=== PATIENT | female | born 2000 | race Caucasian/White ===

== ENCOUNTER → 2019-02-24 | Outpatient (REF) | payer OTHER ==
[~2019-02-24] MED LIST: NORG1TAB4 PO
[2019-02-24 20:29] LABS: BASO % 0.1 % (0.0-1.0); HEMATOCRIT 41.5 % (36.0-47.0); HEMOGLOBIN 13.5 g/dl (12.0-15.5); LYMPH % 6.3 % (24.0-44.0); MEAN CORPUSCULAR HEMOGLOBIN 28.7 pg (27.0-33.0); MEAN CORPUSCULAR HGB CONC 32.5 g/dl (32.0-36.5); MEAN CORPUSCULAR VOLUME 88.3 fl (80.0-96.0); MONO # 0.7 10^3/uL (0.0-0.8); MONO % 4.5 % (0.0-5.0); NEUTROPHILS # 13.3 10^3/uL (1.5-8.5); NEUTROPHILS % 88.7 % (36.0-66.0); PLATELET COUNT, AUTOMATED 279 10^3/uL (150-450)
[2019-02-24 20:42] LABS: ALBUMIN 4.6 GM/DL (3.2-5.2); ALT/SGPT 12 U/L (12-78); AMYLASE 57 U/L (25-115); BILIRUBIN,TOTAL 0.6 MG/DL (0.2-1.0); BLOOD UREA NITROGEN 9 MG/DL (7-18); CALCIUM LEVEL 9.6 MG/DL (8.5-10.1); CARBON DIOXIDE LEVEL 28 MEQ/L (21-32); CHLORIDE LEVEL 107 MEQ/L (98-107); CREATININE FOR GFR 1.11 MG/DL (0.55-1.30); GLUCOSE, FASTING 80 MG/DL (70-100); LIPASE 102 U/L (73-393); POTASSIUM SERUM 4.1 MEQ/L (3.5-5.1); SODIUM LEVEL 142 MEQ/L (136-145); TOTAL PROTEIN 7.8 GM/DL (6.4-8.2)
== END ==
LOC: M LAB REF 08:51
PROVIDERS: ATTEND Physician Assistant Medical
DX: R10.9 Unspecified abdominal pain (principal)

== ENCOUNTER 2019-06-13 18:19 | Inpatient (IN) | payer OTHER ==
[~2019-06-13] VITALS: Ht 172.7 cm; Wt 70.9 kg
[2019-06-13 19:18] LABS: HEMATOCRIT 36.2 % (36.0-47.0); HEMOGLOBIN 11.8 g/dl (12.0-15.5); MEAN CORPUSCULAR HEMOGLOBIN 27.7 pg (27.0-33.0); MEAN CORPUSCULAR HGB CONC 32.6 g/dl (32.0-36.5); PLATELET COUNT, AUTOMATED 107 10^3/uL (150-450); RED BLOOD COUNT 4.26 10^6/uL (4.00-5.40); WHITE BLOOD COUNT 3.3 10^3/uL (4.0-10.0)
[2019-06-13 19:41] LABS: ALBUMIN 3.4 GM/DL (3.2-5.2); ALT/SGPT 455 U/L (12-78); BILIRUBIN,DIRECT 1.7 MG/DL (0.0-0.2); BILIRUBIN,TOTAL 2.4 MG/DL (0.2-1.0); BLOOD UREA NITROGEN 7 MG/DL (7-18); CALCIUM LEVEL 8.3 MG/DL (8.5-10.1); CARBON DIOXIDE LEVEL 28 MEQ/L (21-32); CHLORIDE LEVEL 103 MEQ/L (98-107); CREATININE FOR GFR 0.88 MG/DL (0.55-1.30); GLUCOSE, FASTING 91 MG/DL (70-100); LIPASE 82 U/L (73-393); POTASSIUM SERUM 3.3 MEQ/L (3.5-5.1); SODIUM LEVEL 137 MEQ/L (136-145); TOTAL PROTEIN 6.5 GM/DL (6.4-8.2)
[2019-06-13] MEDS ORDERED: NS 1,000 ML IV ONE (19:45)
[2019-06-13 19:49] LABS: HCG, SERUM QUALITATIVE NEGATIVE (NEGATIVE)
[2019-06-13 19:50] LABS: ATYPICAL LYMPH 44 % (0-5); EOSINOPHILS 1 % (0-3); LYMPHOCYTES 14 % (16-44); NEUTROPHILS 27 % (28-66); PLATELET ESTIMATE NORMAL (NORMAL)
[2019-06-13 19:51] LABS: SMUDGE CELLS 1+
[2019-06-13 21:01] LABS: APPEARANCE, URINE HAZY (CLEAR); BACTERIA, URINE AUTO NEGATIVE (NEGATIVE); BILIRUBIN, URINE AUTO NEGATIVE (NEGATIVE); BLOOD, URINE BLOOD 1+ (NEGATIVE); COLOR, URINE YELLOW (YELLOW); GLUCOSE, URINE (UA) AUTO NEGATIVE (NEGATIVE); KETONE, URINE AUTO TRACE mg/dL (NEGATIVE); LEUKOCYTE ESTERASE, URINE AUTO NEGATIVE (NEGATIVE); NITRITE, URINE AUTO NEGATIVE (NEGATIVE); PROTEIN, URINE AUTO NEGATIVE (NEGATIVE); RBC, URINE AUTO 3 /HPF (0-3); SPECIFIC GRAVITY URINE AUTO 1.002 (1.002-1.035); SQUAMOUS EPITHELIAL CELL UR AU 3 /HPF (0-6); WBC, URINE AUTO 4 /HPF (0-3)
--- NOTE | 2019-06-13 21:45 | REPVR ---
PROCEDURE INFORMATION: Exam: US Abdomen Limited, Right Upper Quadrant Exam date and time: 06/13/2019 9:25 PM Age: 18 years old Clinical indication: Abnormal findings; Abnormal lab test and abnormal radiologic finding of the abdomen; Radiologic exam and body structure: Abd xray; Elevated liver enzymes; Additional info: Biliary/gb eval TECHNIQUE: Imaging protocol: Real-time ultrasound of the abdomen with image documentation. Examination was focused on the right upper quadrant. COMPARISON: CR ABDOMEN 1 VIEW (KUB) 06/13/2019 2:09 PM FINDINGS: Liver: The liver is homogeneous in echotexture. No demonstrated mass or intrahepatic biliary ductal dilatation. Gallbladder: The patient was reportedly not fasting, and the gallbladder is contracted. No definite cholelithiasis was identified. There is no significant gallbladder wall thickening or pericholecystic fluid. Sonographic Cali sign was not commented on. Common bile duct: The common bile duct is normal in size for a patient of this age at 5.1 mm. Pancreas: Visualized portions of the pancreas, not fully including the head or tail, are without demonstrated abnormality. Right kidney: The right kidney measures 12.8 x 4.3 x 5.4 cm. There is no hydronephrosis or demonstrated renal stone, cyst or mass. Inferior vena cava: The IVC is present. IMPRESSION: No definite cholelithiasis with the patient reportedly not fasting and the gallbladder contracted. No other abnormality demonstrated. May consider follow-up after the patient has been fasting for 8 hours. Electronically signed by: Elian Conde On 06/13/2019 21:45:29 PM
[2019-06-13] MEDS ORDERED: ISOVUE-370 76% 100ML VIAL (Q9967) As Ordered ONE (22:41)
[2019-06-13] MEDS ORDERED: KETOROLAC 30 MG/ML VIAL (J1885) IV ONE (23:00)
--- NOTE | 2019-06-13 23:20 | REPVR ---
PROCEDURE INFORMATION: Exam: CT Abdomen And Pelvis With Contrast Exam date and time: 06/13/2019 10:49 PM Age: 18 years old Clinical indication: Abdominal pain; Localized; Right upper quadrant (ruq); Additional info: Ruq pain TECHNIQUE: Imaging protocol: Computed tomography of the abdomen and pelvis with intravenous contrast. Radiation optimization: All CT scans at this facility use at least one of these dose optimization techniques: automated exposure control; mA and/or kV adjustment per patient size (includes targeted exams where dose is matched to clinical indication); or iterative reconstruction. Contrast material: ISO; Contrast volume: 100 ml; Contrast route: AC; COMPARISON: Abdomen, limited US 06/13/2019 9:03 PM FINDINGS: Lungs: No suspicious mass or airspace process in the visualized lung bases. Liver: Liver appears normal with no focal abnormality. Gallbladder and bile ducts: Gallbladder is contracted and not well evaluated. Pancreas: Pancreas appears normal. No focal mass or peripancreatic inflammation. Spleen: Spleen appears homogeneous without focal mass. Adrenals: Adrenal glands are normal in appearance. Kidneys and ureters: Kidneys appear normal, with no stone, solid mass or hydronephrosis. Stomach and bowel: No evidence of small bowel obstruction. No evidence of acute diverticulitis. Appendix: Normal caliber appendix is identified, with no adjacent inflammation. Intraperitoneal space: No pneumoperitoneum. Vasculature: No aortic aneurysm. Main portal and splenic veins enhance normally. Lymph nodes: No enlarged lymph nodes. Bladder: Urinary bladder appears normal. Reproductive: Involuting 2 cm left ovarian cyst is seen anteriorly. Moderate volume of transudate-density pelvic free fluid is present Bones/joints: Bony structures show no acute fracture or destructive process. Soft tissues: Unremarkable. IMPRESSION: 1. Contracted gallbladder without evidence of duct stone or dilatation. Patient had an ultrasound earlier today which demonstrated a contracted gallbladder but no apparent stone. No explanation for acute right upper quadrant pain 2. Involuting 2 cm right ovarian cyst with moderate low-density pelvic free fluid Electronically signed by: Triston Scott On 06/13/2019 23:19:44 PM
[2019-06-14] MEDS ORDERED: PIPERACILLIN/TAZOBACTAM SOD 3.375 GM in D5W MINI-BAG PLUS 50 ML IV ONE (00:15)
[2019-06-14] MEDS ORDERED: NORG1TAB4 PO (01:07)
[2019-06-14] MEDS ORDERED: ACETAMINOPHEN TAB 650MG DOSE (2X325MG) PO PRN (01:30)
[2019-06-14] MEDS: KETOROLAC 30 MG/ML VIAL (J1885) IV PRN ×2 (03:51→09:56)
[2019-06-14 04:20] VITALS: BP 129/61
[2019-06-14] MEDS ORDERED: IBUPROFEN 600 MG TAB PO PRN (05:00)
[2019-06-14] MEDS: ONDANSETRON 4MG/2ML VIAL (J2405) IV PRN ×4 (05:27→20:55)
[2019-06-14] MEDS: PIPERACILLIN/TAZOBACTAM SOD 3.375 GM in D5W MINI-BAG PLUS 50 ML IV SCH ×3 (05:27→19:30)
--- NOTE | 2019-06-14 08:24 | HPEPDOC ---
General Date of Admission Jun 14, 2019 at 01:21 Date of Service: Jun 14, 2019 Attending Physician: BRISEIDA SAMS MD Chief Complaint The patient is a 18-year-old female admitted with a reason for visit of Bandemia;Biliary Obstruction;Leukopenia. Source: Patient, Family Exam Limitations: No limitations Timing/Duration: 24 hours Severity: Moderate Associated Symptoms: Fever, Chills, Nausea, Vomiting, Other (abdominal pain) History of Present Illness 18 yo woman with no significant past medical history presenting with N/V/RUQ pain/fever/chills of 24 hour duration. She initially presented to urgent care where an XR was done and noted calcification in her gall bladder. She proceeded to present to the ED where she was hemodynamically stable, mild tachycardia to low 100s to 90s, no recorded fever though she reported fever at home and urgent care. While in the ED work up was notable for leukopenia to 3.3 with a 14% bandemia and 44% atypical, anemia to Hgb 11.8, Hct 36.2, thrombocytopenia to 107, AST 330, ALT 455, Tbili 2.4, Dbili 1.7, alk phos 214, with a CT A/P that showed a contracted gallbladder without evidence of duct stone or dilatation as well as RUQ ultrasound that demonstrated a contracted gallbladder with no apparent stone. She was given toradol 30 IV with improvement in her abdominal pain and was admitted to medicine with plan for GI consult for possible biliary obstruction and for hematologic work up of her pancytopenia. Home Medications Scheduled Norgestimate-Ethinyl Estradiol (Norg-Ee 0.18-0.215-0.25/0.025) 1 Each Tablet, 1 TAB PO QHS, (Reported) ON HOLD UNTIL AFTER MENSTRUATION Allergies Coded Allergies: No Known Allergies (Unverified , 06/13/19) Past Medical History Medical History None Surgical History None Family History Significant Family History: No pertinent family hx Social History * Smoker: Denies Alcohol: Denies Drugs: denies Recent Travel/Sick Contacts: Denies: Recent travel, Recent sick contacts Psychosocial History: No pertinent psych hx A-FIB/CHADSVASC A-FIB History Current/History of A-Fib/PAF?: No Current PO Anticoag Therapy: No Age/Risk Factor Scoring CHADSVASC: CHADSVASC Response (Comments) Value Age Risk Factor Age < 65 years old 0 Gender Risk Factor Female 1 Hx of CHF No 0 Hx of HTN No 0 Hx of Stroke/TIA/or VTE No 0 Hx of Diabetes No 0 Hx of Vascular Disease No 0 Total 1 Treatment Treatment ordered: NONE Reason Anticoagulant not given: Not indicated/[id number] Review of Systems Constitutional: Reports: Chills, Fever; Denies: Weight Loss Eyes: Denies: Pain, Vision change ENT: Denies: Head Aches, Ear Pain, Dysphagia Skin: Denies: Rash, Lesions, Breakdown Pulmonary: Denies: Dyspnea, Cough Cardiovascular: Denies: Chest Pain, Palpitations, Orthopnea, Paroxysmal Noc. Dyspnea, Lt Headedness Gastrointestinal: Reports: Nausea, Vomiting, Abdominal Pain; Denies: Diarrhea, Constipation Genitourinary: Denies: Dysuria, Frequency, Incontinence, Hematuria, Retention Hematologic: Denies: Bruising, Bleeding Excessively Endocrine: Denies: Polydipsia, Polyphagia, Polyuria, Heat Intolerance, Cold Intolerance, Other Endocrine Sx Musculoskeletal: Denies: Neck Pain, Back Pain, Joint Pain, Muscle Pain, Spasms Neurological: Denies: Weakness, Numbness, Change in speech, Confusion Psych: Reports: Mood Normal; Denies: Depression, Memory Issues Physical Examination General Exam: Positive: Alert, No Acute Distress Eye Exam: Positive: PERRLA, Conjunctiva & lids normal, EOMI; Negative: Sclera icteric ENT Exam: Positive: Atraumatic, Mucous membr. moist/pink, Pharynx Normal Neck Exam: Positive: Supple; Negative: JVD, thyromegaly Chest Exam: Positive: Clear to auscultation, Normal air movement Heart Exam: Positive: Rate Normal, Regular Rhythm, Normal S1, Normal S2; Negative: Murmurs, Rubs Telemetry: Positive: No significant arrhythmia Abdomen Exam: Positive: Normal bowel sounds, Soft, Tenderness (+Cali's); Negative: Hepatospenomegaly, Mass Extremity Exam: Positive: Normal pulses; Negative: Clubbing, Cyanosis, Edema Skin Exam: Positive: Nl turgor and temperature; Negative: Breakdown, Lesion Neuro Exam: Positive: Normal Gait, Normal Speech, Cranial Nerves 3-12 NL, Reflexes 2+ Psych Exam: Positive: Mental status NL, Mood NL, Oriented x 3 Vital Signs Vital Signs Date Time Temp Pulse Resp B/P (MAP) Pulse Ox O2 Delivery O2 Flow Rate FiO2 06/14/19 04:20 99.7 96 18 129/61 (83) 98 Room Air Laboratory Data Labs 24H Laboratory Tests 2 06/13/19 18:57: Nucleated Red Blood Cells % (auto) 0.0, Neutrophils 27L, Band Neutrophils 14H, Lymphocytes (Manual) 14L, Eosinophils (Manual) 1, Atypical Lymphocytes 44H, Red Blood Cell Morphology NORMAL, Smudge Cells 1+, Platelet Estimate NORMAL, Anion Gap 6L, Calcium Level 8.3L, Total Bilirubin 2.4H, Direct Bilirubin 1.7H, Aspartate Amino Transf (AST/SGOT) 330H, Alanine Aminotransferase (ALT/SGPT) 455H, Alkaline Phosphatase 214H, Total Protein 6.5, Albumin 3.4, Albumin/Globulin Ratio 1.10, Lipase 82, Human Chorionic Gonadotropin, Qual NEGATIVE 06/13/19 20:28: Urine Color YELLOW, Urine Appearance HAZY, Urine pH 7.0, Urine Specific [place] 1.002, Urine Protein NEGATIVE, Urine Glucose (Auto)(UA) NEGATIVE, Urine Ketones (Auto) TRACEH, Urine Blood 1+H, Urine Nitrite NEGATIVE, Urine Bilirubin NEGATIVE, Urine Urobilinogen 2.0H, Urine Leukocyte Esterase (Auto) NEGATIVE, Urine WBC (Auto) 4H, Urine RBC (Auto) 3, Urine Hyaline Casts (Auto) 0, Urine Bacteria (Auto) NEGATIVE, Urine Squamous Epithelial Cells 3, Urine Sperm (Auto) CBC/BMP Laboratory Tests 06/13/19 18:57 Microbiology Microbiology 06/14/19 Blood Culture, Received Pending 06/13/19 Urine Culture, Received Pending Assessment/Plan 18 yo woman with no significant past medical history who presented with RUQ pain with N/V/fever c/f biliary tree pathology at risk for cholangitis and started on empiric zosyn, however with a contracted gall bladder without evidence of stones with report of calcification on urgent care imaging c/f retained stone, with course c/b panycytopenia c/f hematologic pathology. RUQ pain with N/V/fever/+cali's sign: c/f cholangitis with retained stone, though imaging shows contracted gall bladder (CT and US) without evidence of stones. -GI consult placed, to call Dr. Jones in the morning -continue empiric zosyn -s/p IVF in the ED -toradol PRn for pain -Discuss with Dr. Jones if she should get an MRCP, unlikely ERCP without im aging evidence at this time -was made NPO overnight just in case Pancytopenia: -Leukopenia with bandemia and predominant atypical lymphocytes, as well as mild anemia and thrombocytopenia and elevated bilis -Peripheral smear -LDH -haptoglobin -RBC retic count -vitamin B12 -MMA -Fe -TIBC -ferritin DVT ppx: lovenox Dispo: inpatient for RUQ pain and pancytopenia work up Plan / VTE VTE Prophylaxis Ordered?: Yes BRISEIDA SAMS MD Jun 14, 2019 08:24
[2019-06-14] MEDS ORDERED: ENOXAPARIN 40 MG/0.4 ML SYRINGE (J1650) SC SCH (09:00)
[2019-06-14 09:48] LABS: HEMATOCRIT 33.3 % (36.0-47.0); HEMOGLOBIN 10.9 g/dl (12.0-15.5); MEAN CORPUSCULAR HGB CONC 32.7 g/dl (32.0-36.5); MEAN CORPUSCULAR VOLUME 85.6 fl (80.0-96.0); RED BLOOD COUNT 3.89 10^6/uL (4.00-5.40); WHITE BLOOD COUNT 2.9 10^3/uL (4.0-10.0)
[2019-06-14 09:54] LABS: PLATELET COUNT, AUTOMATED 99 10^3/uL (150-450)
[2019-06-14 10:14] LABS: ALBUMIN 2.8 GM/DL (3.2-5.2); ALT/SGPT 356 U/L (12-78); BILIRUBIN,TOTAL 2.7 MG/DL (0.2-1.0); BLOOD UREA NITROGEN 5 MG/DL (7-18); CALCIUM LEVEL 7.9 MG/DL (8.5-10.1); CARBON DIOXIDE LEVEL 26 MEQ/L (21-32); CHLORIDE LEVEL 107 MEQ/L (98-107); CREATININE FOR GFR 0.83 MG/DL (0.55-1.30); FERRITIN 280 NG/ML (8-252); GLUCOSE, FASTING 88 MG/DL (70-100); IRON (FE) 21 UG/DL (50-170); LDH LACTATE DEHYDROGENASE 347 U/L (84-246); PERCENT SATURATION 8.5 % (13.2-45.0); POTASSIUM SERUM 3.3 MEQ/L (3.5-5.1); SODIUM LEVEL 140 MEQ/L (136-145); TOTAL IRON BINDING CAPACITY 248 UG/DL (250-450); TOTAL PROTEIN 5.7 GM/DL (6.4-8.2)
[2019-06-14 10:30] LABS: MONO REFLEX EBV VCA IgM POSITIVE (NEGATIVE)
[2019-06-14 10:31] LABS: VITAMIN B12 LEVEL 262 PG/ML (247-911)
[2019-06-14 10:33] LABS: ATYPICAL LYMPH 27 % (0-5); LYMPHOCYTES 35 % (16-44); MONOCYTES 2 % (0-5); NEUTROPHILS 34 % (28-66); PLATELET ESTIMATE DECREASED (NORMAL)
--- NOTE | 2019-06-14 12:12 | IPNPDOC ---
Subjective Date Seen The patient was seen on 06/14/19. Subjective Chief Complaint/HPI Complains of right upper quadrant pain and epigastric pain with some substernal pain. No fever noted but patient on Toradol. Some nausea no vomiting. Having regular bowel movements. Also complains of headache. Her abdominal complaints started about 5 days ago. As per mom she has been getting more listless and tired. I noted her texting on the cell phone. Objective Physical Examination General Exam: Positive: Alert, Cooperative, No Acute Distress Eye Exam: Positive: PERRLA, Conjunctiva & lids normal, EOMI; Negative: Sclera icteric ENT Exam: Positive: Atraumatic, Mucous membr. moist/pink, Pharynx Normal Neck Exam: Positive: Supple; Negative: JVD, thyromegaly Chest Exam: Positive: Clear to auscultation, Normal air movement Heart Exam: Positive: Rate Normal, Regular Rhythm, Normal S1, Normal S2; Negative: Murmurs, Rubs Telemetry: Positive: No significant arrhythmia Abdomen Exam: Positive: Normal bowel sounds, Soft, Tenderness (right upper quadrant); Negative: Hepatospenomegaly, Mass Extremity Exam: Positive: Normal pulses; Negative: Clubbing, Cyanosis, Edema Skin Exam: Positive: Nl turgor and temperature; Negative: Breakdown, Lesion Neuro Exam: Positive: Normal Gait, Normal Speech, Cranial Nerves 3-12 NL, Reflexes 2+ Psych Exam: Positive: Mental status NL, Mood NL, Oriented x 3 Assessment /Plan Assessment 18 yo woman with no significant past medical history who presented with RUQ pain with N/V/fever c/f biliary tree pathology at risk for cholangitis and started on empiric zosyn, however with a contracted gall bladder without evidence of stones with report of calcification on urgent care imaging c/f retained stone, with course c/b panycytopenia c/f hematologic pathology. Transaminitis with direct hyperbirirubinemia no definite obs or GB stone seen seen in CT abd pelvis. May need MRCP. viral studies has been sent. Monoscreen positive. Cholangitis is a possibilitiy will continue zosyn for now. Pancytopenia with 44% atypical lymphocytes Acute viral illness VS hematological malignancy Consulted Dr Hays ordered flow cytometry, JAIDEN, fibrinogen , d dimer will order CMV pcr, EBV qualitative pcr, Herpes 1 and 2 pcr. peripheral smear ordered. order work up are in progress. Plan/VTE VTE Prophylaxis Ordered?: Yes VS, I&O, 24H, Fishbone Vital Signs/I&O Vital Signs Date Time Temp Pulse Resp B/P (MAP) Pulse Ox O2 Delivery O2 Flow Rate FiO2 06/14/19 04:20 99.7 96 18 129/61 (83) 98 Room Air I&O- Last 24 Hours up to 6 AM 06/14/19 06:00 Intake Total 1000 ml Output Total 0 ml Balance 1000 ml Laboratory Data 24H LABS Laboratory Tests 2 06/13/19 18:57: Nucleated Red Blood Cells % (auto) 0.0, Neutrophils 27L, Band Neutrophils 14H, Lymphocytes (Manual) 14L, Eosinophils (Manual) 1, Atypical Lymphocytes 44H, Red Blood Cell Morphology NORMAL, Smudge Cells 1+, Platelet Estimate NORMAL, Anion Gap 6L, Calcium Level 8.3L, Total Bilirubin 2.4H, Direct Bilirubin 1.7H, Aspartate Amino Transf (AST/SGOT) 330H, Alanine Aminotransferase (ALT/SGPT) 455H, Alkaline Phosphatase 214H, Total Protein 6.5, Albumin 3.4, Albumin/Globulin Ratio 1.10, Lipase 82, Human Chorionic Gonadotropin, Qual NEGAT ARABELLA 06/13/19 20:28: Urine Color YELLOW, Urine Appearance HAZY, Urine pH 7.0, Urine Specific [place] 1.002, Urine Protein NEGATIVE, Urine Glucose (Auto)(UA) NEGATIVE, Urine Ketones (Auto) TRACEH, Urine Blood 1+H, Urine Nitrite NEGATIVE, Urine Bilirubin NEGATIVE, Urine Urobilinogen 2.0H, Urine Leukocyte Esterase (Auto) NEGATIVE, Urine WBC (Auto) 4H, Urine RBC (Auto) 3, Urine Hyaline Casts (Auto) 0, Urine Bacteria (Auto) NEGATIVE, Urine Squamous Epithelial Cells 3, Urine Sperm (Auto) 06/14/19 09:35: Nucleated Red Blood Cells % (auto) 0.0, Neutrophils 34, Band Neutrophils 2, Lymphocytes (Manual) 35, Atypical Lymphocytes 27H, Platelet Estimate DECREASED, Anion Gap 7L, Calcium Level 7.9L, Total Bilirubin 2.7H, Aspartate Amino Transf (AST/SGOT) 223H, Alanine Aminotransferase (ALT/SGPT) 356H, Alkaline Phosphatase 234H, Total Protein 5.7L, Albumin 2.8L, Albumin/Globulin Ratio 0.97L, Neutrophils # (Auto) , Reticulocyte # (auto) 53.7, Monocytes (Manual) 2, Differential Slide Review Report, Immature Platelet Fraction 3.9, Peripheral Blood Smear Path Consult PERIPHERAL SMEAR, Percent Reticulocyte Count 1.4, Reticulocyte Hemoglobin Equivalent 29.7, Iron Level 21L, Total Iron Binding Capacity 248L, Transferrin % Saturation 8.5L, Ferritin 280H, Lactate Dehydrogenase 347H, Vitamin B12 Level 262, Monoscreen POSITIVEA CBC/BMP Laboratory Tests 06/13/19 18:57 06/14/19 09:35 Microbiology Microbiology 06/14/19 Blood Culture, Received Pending 06/13/19 Urine Culture, Received Pending CHAPARRITA LAM MD Jun 14, 2019 12:12
[2019-06-14 12:23] LABS: INR 1.34; PROTHROMBIN TIME 16.3 SECONDS (11.8-14.0)
[2019-06-14 12:24] LABS: PARTIAL THROMBOPLASTIN TIME 54.4 SECONDS (25.0-38.4)
[2019-06-14 12:26] LABS: D-DIMER QUANT 2964.95 ng/ml (<500)
[2019-06-14] MEDS: PANTOPRAZOLE 40MG INJ (PROTONIX) (C9113) IV SCH (12:26)
[2019-06-14] MEDS: oxyCODONE 5MG TAB PO PRN ×2 (12:27→19:39)
[2019-06-14 14:00] VITALS: BP 95/48
[2019-06-14] MEDS: KETOROLAC 30 MG/ML VIAL (J1885) IV SCH ×2 (16:27→21:07)
[2019-06-14] MEDS ORDERED: ISOVUE-370 76% 100ML VIAL (Q9967) As Ordered ONE (17:41)
[2019-06-14] MEDS ORDERED: PHYTONADIONE 5 MG TAB PO ONE (18:00)
--- NOTE | 2019-06-14 19:07 | REPVR ---
PROCEDURE INFORMATION: Exam: CT Neck With Contrast Exam date and time: 06/14/2019 5:59 PM Age: 18 years old Clinical indication: Neck pain; Additional info: Right upper cervical lymph node, R/O lymphadenopathy TECHNIQUE: Imaging protocol: Computed tomography images of the neck with intravenous contrast. Radiation optimization: All CT scans at this facility use at least one of these dose optimization techniques: automated exposure control; mA and/or kV adjustment per patient size (includes targeted exams where dose is matched to clinical indication); or iterative reconstruction. Contrast material: ISOVUE 370; Contrast volume: 75 ml; Contrast route: IV; COMPARISON: No relevant prior studies available. FINDINGS: Nasopharynx: Unremarkable. Oropharynx: Unremarkable. No significant tonsillar enlargement. Hypopharynx: Unremarkable Larynx: Unremarkable. Normal epiglottis. Retropharyngeal space: Unremarkable. Submandibular/Parotid glands: Normal. Glands are normal in size. Thyroid: Normal. No enlarged or calcified nodules. Lymph nodes: Cervical chain lymphadenopathy on the right measures up to 13 mm in the jugulodigastric region and 8 mm at the base of the neck, with lymph nodes extending from level 2 to level 4. Multiple lymph nodes demonstrated on the left measuring up to 9 mm in the jugular digastric region extending from level 2 to level 3. Trachea: Visualized trachea is unremarkable. Lungs: Unremarkable as visualized. Bones/joints: Unremarkable. No acute fracture. Soft tissues: Unremarkable. No significant soft tissue swelling. IMPRESSION: Bilateral cervical lymphadenopathy, right greater than left. Electronically signed by: Edgardo Arnold On 06/14/2019 19:07:29 PM
[2019-06-14 20:48] VITALS: BP 106/66
[2019-06-14] MEDS: NS 1,000 ML IV SCH (20:55)
--- NOTE | 2019-06-14 22:33 | CR.PDOC ---
General Date of Consultation: Jun 14, 2019 Referring Provider: CHAPARRITA KC MD Attending Physician: RUFINO KANG MD Consultation Primary physician/ hospitalist: Dr. Kc Reason for consult: Abdominal pain, abnormal liver panel. HPI: 18 year old female patient with no prior medical comorbidities, was admitted to [facility] for headaches, upper abdominal pain, nausea and vomiting. Patient is noted to have abnormal liver tests and GI was consulted for the same. Patient reports her symptoms started cutely around 5 days ago with dark orange coloured urine, subsequently with headaches, upper abdominal pain, nausea, vominting, which continued to get worse and unable to tolerate any oral diet. The abdominal pain is in upper abdomen, extending from righ soraya quadrant to left upper quadrant area, waxing and waning, sometimes sharp pain, worsening with pressure/palpation. Patient denies any measured fever, no nuchal rigidity, no visual disturbances but has some photophobia. Pateint deana reports swelling of the neck lymph nodes. Patient denies taking any OTC medications, herbal supplements, heavy alcohol use or any IVDA. Pertinent negative GI symptoms: Patient denies fever, sick contacts, recent travel, diarrhea, loss of appetite, early satiety or unintentional weight loss. No history of hematemesis, melena or hematochezia. Patient reports regular bowel movements. Review of Systems: GI: as stated above CVS: No chest pain, No palpitations, No leg swelling. RS: No Shortness of breath, No Wheezing, no cough ELECTROPHYSIOLOGIST: No dizziness, No motor weakness, No sensory problems Hematology: No bruising, No gum bleeding, Musculoskeletal: No joint pain, ambulating well. Skin: No rash : No hematuria, No burning sensation of the urine ENT: No ear discharge/ pain, No dysphagia. Eyes: no blurry vision. Home medications: reviewed. Antithrombotic agents - none Medical h/o: As above. Surgical h/o: None on abdomen. Social h/o: Alcohol - denies , smoking - denies , IVDA/ drugs , denies. . Family h/o of GI cancers - Father has Lymphoma. Prior Endoscopies: None Prior GI evaluations: None in past. Exam: Vitals: reviewed General: Alert and oriented x 3, mild distress from pain. HEENT: NO pallor, no clinical scleral icterus. Normal oropharynx, palpable bilateral tender cervical lymphadenopathy. pupils are equal and reactive. Chest: symmetric with bilateral clear air entry, CVS: S1, S2 heard, normal, no murmurs . Abdomen: non-distended, no surgical scars, soft, mild to moderate tenderness in right upper, epigastric and left upper quadrant., no palpable masses, normal bowel sounds heard. Rectal exam: Patient refused / Deferred at this time. Extremities: no pedal edema, pulses palpable. ELECTROPHYSIOLOGIST: no focal motor or sensory deficits. Moves all extremities Skin: no rash. Labs: reviewed. Imaging: reviewed. Impression: -- Acute onset abdominal pain ( upper abdomen) with flu like illness, nuasea, vomiting, headaches, with bilateral cervical lymphadenopathy ( tender), labs showing pancytopenia, with abnormal liver panel, normal CBD on CT abdomen, likel y viral infections (Infectious mononucleosis / herpes infection / parvo viral infection) vs atypical viral illness vs less likely lymphoma. -- Pancytopenia with headaches and minimal photophobia-- likely from flu like illness. rule out other causes. Recommendations: - Patient educated about the test results, possible differential diagnoses and All questions answered. - Closely monitor mental status and septic work up. If any change in mental status or focl neurologicl changes, consider MRI/CT head. - Obtain EBV serology, HSV serology, hemolyic work up including Haptoglobin and LDH, direct and indirect edilson antibody, Peripheral smear for pathology review. - Also obtain viral hepatitis panel. Avoid hepatotoxic medications. - Supportive care with oral nutrition as tolerated. - Consider PPI for now due to nausea and vomiting. - Based on above consider flow cytometry - Based on clinical course will consider EGD if needed on Wednesday. - The procedure, indications, risks (bleeding, perforation, infection, hypotension, respiratory depression, allergy, need for endotracheal intubation, surgery, colostomy, cardiac arrest, even ), benefits, limitations (e.g., missing a lesion), and all other alternatives (including no intervention) were explained to the patient and her mother. - GI will follow.. Plan of care discussed with patient and primary team. Patient verbalized understanding and agreed with the plan. Vital Signs/I&O Vital Signs Date Time Temp Pulse Resp B/P (MAP) Pulse Ox O2 Delivery O2 Flow Rate FiO2 06/14/19 20:09 20 06/14/19 19:39 Room Air 06/14/19 14:00 97.7 88 95/48 (64) 98 I&O- Last 24 Hours up to 6 AM 06/14/19 06:00 Intake Total 1000 ml Output Total 0 ml Balance 1000 ml Laboratory Data Labs 24H Laboratory Tests 2 06/14/19 09:35: Neutrophils # (Auto) , Reticulocyte # (auto) 53.7, Nucleated Red Blood Cells % (auto) 0.0, Neutrophils 34, Band Neutrophils 2, Lymphocytes (Manual) 35, Monocytes (Manual) 2, Atypical Lymphocytes 27H, Platelet Estimate DECREASED, Differential Slide Review Report, Immature Platelet Fraction 3.9, Peripheral Blood Smear Path Consult PERIPHERAL SMEAR, Percent Reticulocyte Count 1.4, Reticulocyte Hemoglobin Equivalent 29.7, Anion Gap 7L, Calcium Level 7.9L, Iron Level 21L, Total Iron Binding Capacity 248L, Transferrin % Saturation 8.5L, Ferritin 280H, Total Bilirubin 2.7H, Aspartate Amino Transf (AST/SGOT) 223H, Alanine Aminotransferase (ALT/SGPT) 356H, Alkaline Phosphatase 234H, Lactate Dehydrogenase 347H, Total Protein 5.7L, Albumin 2.8L, Albumin/Globulin Ratio 0.97L, Vitamin B12 Level 262, Monoscreen POSITIVEA 06/14/19 10:52: Prothrombin Time 16.3H, Prothromb Time International Ratio 1.34, Activated Part ial Thromboplast Time 54.4H, Fibrinogen 295, D-Dimer, Quantitative 2964.95H CBC/BMP Laboratory Tests 06/14/19 09:35 Microbiology Microbiology 06/14/19 Blood Culture, Received Pending 06/13/19 Urine Culture - Final, Complete Allergies Coded Allergies: No Known Allergies (Unverified , 06/13/19) Home Medications Scheduled Norgestimate-Ethinyl Estradiol (Norg-Ee 0.18-0.215-0.25/0.025) 1 Each Tablet, 1 TAB PO QHS, (Reported) ON HOLD UNTIL AFTER MENSTRUATION RUFINO KANG MD Jun 14, 2019 22:33
[2019-06-15] MEDS: oxyCODONE 5MG TAB PO PRN ×5 (02:02→22:43)
[2019-06-15] MEDS: ONDANSETRON 4MG/2ML VIAL (J2405) IV PRN ×5 (02:02→22:43)
[2019-06-15] MEDS: KETOROLAC 30 MG/ML VIAL (J1885) IV SCH ×2 (03:58→09:25)
[2019-06-15 06:10] VITALS: BP 106/66
[2019-06-15] MEDS: NS 1,000 ML IV SCH ×2 (06:17→16:12)
[2019-06-15 07:31] LABS: HEMATOCRIT 32.4 % (36.0-47.0); HEMOGLOBIN 10.4 g/dl (12.0-15.5); MEAN CORPUSCULAR HEMOGLOBIN 27.9 pg (27.0-33.0); MEAN CORPUSCULAR HGB CONC 32.1 g/dl (32.0-36.5); MEAN CORPUSCULAR VOLUME 86.9 fl (80.0-96.0); RED BLOOD COUNT 3.73 10^6/uL (4.00-5.40); WHITE BLOOD COUNT 4.9 10^3/uL (4.0-10.0)
[2019-06-15 07:34] LABS: PLATELET COUNT, AUTOMATED 98 10^3/uL (150-450)
[2019-06-15 07:43] LABS: ALBUMIN 2.5 GM/DL (3.2-5.2); ALT/SGPT 317 U/L (12-78); BILIRUBIN,TOTAL 3.3 MG/DL (0.2-1.0); BLOOD UREA NITROGEN 6 MG/DL (7-18); CALCIUM LEVEL 7.9 MG/DL (8.5-10.1); CARBON DIOXIDE LEVEL 26 MEQ/L (21-32); CHLORIDE LEVEL 106 MEQ/L (98-107); CREATININE FOR GFR 0.78 MG/DL (0.55-1.30); GLUCOSE, FASTING 80 MG/DL (70-100); POTASSIUM SERUM 3.5 MEQ/L (3.5-5.1); SODIUM LEVEL 140 MEQ/L (136-145); TOTAL PROTEIN 5.6 GM/DL (6.4-8.2)
[2019-06-15 08:29] LABS: ATYPICAL LYMPH 12 % (0-5); LYMPHOCYTES 53 % (16-44); METAMYELOCYTES 2 % (0-0); MONOCYTES 5 % (0-5); NEUTROPHILS 24 % (28-66); PLATELET ESTIMATE DECREASED (NORMAL)
[2019-06-15 08:30] LABS: ANISOCYTOSIS 1+; MICROCYTOSIS 1+
[2019-06-15] MEDS: PANTOPRAZOLE 40MG INJ (PROTONIX) (C9113) IV SCH (09:25)
--- NOTE | 2019-06-15 11:50 | IPNPDOC ---
Subjective Date Seen The patient was seen on 06/15/19. Subjective Chief Complaint/HPI Still has some nausea and vomited once this am. Still has a headache but not as bed as yesterday, No photophobia. Objective Physical Examination General Exam: Positive: Alert, Cooperative, No Acute Distress Eye Exam: Positive: PERRLA, Conjunctiva & lids normal, EOMI; Negative: Sclera icteric ENT Exam: Positive: Atraumatic, Mucous membr. moist/pink, Pharynx Normal Neck Exam: Positive: Supple, Other (no neck rigidity); Negative: JVD, thyromegaly Chest Exam: Positive: Clear to auscultation, Normal air movement Heart Exam: Positive: Rate Normal, Regular Rhythm, Normal S1, Normal S2; Negative: Murmurs, Rubs Telemetry: Positive: No significant arrhythmia Abdomen Exam: Positive: Normal bowel sounds, Soft, Tenderness (right upper quadrant); Negative: Hepatospenomegaly, Mass Extremity Exam: Positive: Normal pulses; Negative: Clubbing, Cyanosis, Edema Skin Exam: Positive: Nl turgor and temperature; Negative: Breakdown, Lesion Neuro Exam: Positive: Normal Gait, Normal Speech, Cranial Nerves 3-12 NL, Reflexes 2+ Psych Exam: Positive: Mental status NL, Mood NL, Oriented x 3 Assessment /Plan Assessment 18 yo woman with no significant past medical history who presented with RUQ pain with N/V/fever c/f biliary tree pathology at risk for cholangitis and started on empiric zosyn, however with a contracted gall bladder without evidence of stones with report of calcification on urgent care imaging c/f retained stone, with course c/b panycytopenia c/f hematologic pathology. Transaminitis with direct hyperbirirubinemia no definite obs or GB stone seen seen in CT abd pelvis. viral studies has been sent. Monoscreen positive. CT neck with multiple lymphadenopathy Most probably infectious mononucleosis Pancytopenia with atypical lymphocytes improving. Acute viral illness VS hematological malignancy Consulted Dr Hays ;and Dr Romero JAIDEN negative. ordered CMV pcr, EBV qualitative pcr, Herpes 1 and 2 pcr. Flow cytometry cancelled as pathologist said this seems like mono and after she is better from mono if thrombocytopenia persists then only she should get a flow cytometry. Plan/VTE VTE Prophylaxis Ordered?: Yes VS, I&O, 24H, Fishbone Vital Signs/I&O Vital Signs Date Time Temp Pulse Resp B/P (MAP) Pulse Ox O2 Delivery O2 Flow Rate FiO2 06/15/19 07:36 18 Room Air 06/15/19 06:10 98.9 84 106/66 (79) 99 I&O- Last 24 Hours up to 6 AM 06/15/19 06:00 Intake Total 710 ml Output Total 0 ml Balance 710 ml Laboratory Data 24H LABS Laboratory Tests 2 06/15/19 06:57: Neutrophils # (Auto) , Nucleated Red Blood Cells % (auto) 0.0, Neutrophils 24L, Band Neutrophils 4, Lymphocytes (Manual) 53H, Monocytes (Manual) 5, Metamyelocytes 2H, Atypical Lymphocytes 12H, Anisocytosis 1+, Microcytosis 1+, Platelet Estimate DECREASED 06/15/19 06:58: Anion Gap 8, Calcium Level 7.9L, Total Bilirubin 3.3H, Aspartate Amino Transf (AST/SGOT) 195H, Alanine Aminotransferase (ALT/SGPT) 317H, Alkaline Phosphatase 239H, Total Protein 5.6L, Albumin 2.5L, Albumin/Globulin Ratio 0.81L CBC/BMP Laboratory Tests 06/15/19 06:57 06/15/19 06:58 Microbiology Microbiology 06/14/19 Blood Culture - Preliminary, Resulted No growth after 24 hours . All specim... 06/13/19 Urine Culture - Final, Complete CHAPARRITA LAM MD Jun 15, 2019 11:50
[2019-06-15 12:45] VITALS: BP 112/71
--- NOTE | 2019-06-15 15:09 | CR.PDOC ---
General Date of Consultation: Jun 15, 2019 Attending Physician: Jon Romero MD Consultation REASON FOR CONSULTATION/CHIEF COMPLAINT: Leukopenia, bandemia, positive Monospot HISTORY OF PRESENT ILLNESS: Patient is a 18-year-old female without any past medical history who originally presented to emergency department on 06/14/2019 with a 3 day history of headache with photophobia, nausea, vomiting, right upper quadrant pain in the setting of fever and chills. The day of presentation, patient reports to urgent care for evaluation. An upright plain film image was ordered which demonstrated some evidence of choledocholithiasis. Recommended patient presented to the emergency department further evaluation and management. Emergency department workup was significant for a leukopenia of 3.3 with a 14% bandemia and 44% atypical. Hemoglobin of 11.8. Thermal cytopenia at 107. AST of 3:30 in the mail to you for 55. Patient's T bili was also elevated at 2.4, D bili at 1.7 and alkaline phosphatase of 214. CT abdomen and pelvis showed a contracted gallbladder without evidence of stone dilation. Ultrasound confirmed contracted gallbladder with no apparent stone. PAST MEDICAL HISTORY: No significant past medical history PAST SURGICAL HISTORY: No surgical history FAMILY HISTORY: Patient reports that her father was diagnosed with mantle cell lymphoma in his mid 50s. SOCIAL HISTORY: Marital status and/or living arrangements: Patient lives at home with father. Tobacco use: Nonsmoker ETOH: Denies alcohol use Illicit drug use: Denies illicit drug use IV drug use: Denies IV drug use Other relevant social factors: Patient lives in [place] with her father, 3 dogs, No recent travel or known exposures. REVIEW OF SYSTEMS: CONSTITUTIONAL: Patient reports a total of 5 days of intermittent fevers and chills and decreased appetite secondary to nausea. HEENT: Patient is reporting a 5 day history of headache with slight photophobia. She also has noted lymph nodes on her right lateral neck. No vision changes, no difficulty swallowing, no sore throat. CARDIOVASCULAR: Patient reports epigastric chest pain upon deep inspiration. Denies any palpitations. RESPIRATORY: Denies any shortness of breath, recent cough or sputum production GENITOURINARY: No dysuria, urinary frequency, urgency, hesitancy, incontinence MUSCULOSKELETAL: Denies any muscle aches, joint pains GASTROINTESTINAL: Recent history of nausea alleviated with Zofran, last bout of emesis last evening. SKIN: Patient noted an obscure bruise on the lateral aspect of her right thigh. No other noted skin rashes NEUROLOGICAL: As per admission, patient does report persistent photophobia with dull bitemporal headache. PSYCHIATRIC: No psychiatric history. ENDOCRINE: No history of polydipsia, polyphagia,. HEMATOLOGIC/LYMPHATIC: No history of easy bruising PHYSICAL EXAMINATION: VITAL SIGNS: Please see below. GENERAL APPEARANCE: Patient is interviewed and examined in her hospital room. Patient was accompanied by patient's mother and friend. She did not appear to be in any acute distress. She was alert and oriented, able to answer questions regarding her medical history appropriately able to actively participate in her care. Do not appear to be in any visible discomfort. HEENT: Normocephalic, atraumatic, EOMI, no sinus tenderness. His membranes are moist. Nontender, posterior cervical nodes palpated on the right. No tonsil enlargement tonsillar exudate. RESPIRATORY: Clear to auscultation bilaterally with full inspiration. No wheezing rales or rhonchi CARDIOVASCULAR: Regular rate and rhythm, normal S1 and S2. No murmurs appreciated ABDOMEN: Patient tender in the right upper quadrant and left upper quadrant. Abdomen is otherwise soft, no guarding or rebound tenderness. BACK: Negative CVA tenderness EXTREMITIES: No edema or calf tenderness bilaterally. Resolving facial bruises noted on the lateral aspect of patient's right thigh. NEUROLOGICAL: No focal neurologic deficits appreciated. Mentation. Alert and oriented 3. PSYCHIATRIC: Mood and affect appropriate given the patient's current medical condition. LABORATORY DATA: Please see below. ASSESSMENT/PLAN: #Mild Leukopenia with bandemia, 44% atypical lymphocytes -Suspect viral infection, mononucleosis Patient remains afebrile -Peripheral smear demonstrating many reactive/atypical lymphocytes, consistent with viral illness. -[place] screen positive. We will also screen patient for HIV. -Lyme, CMV, parvo and HSV serologies remain pending. #Heme/Onc consulted to assist with ruling out hematologic malignancy -Patient does carry a family history of mantle cell lymphoma. Posterior cervical chain lymphadenopathy noted on examination. -Neck CT performed on 06/14/2019 that showed evidence of bilateral cervical lymphadenopathy, right greater than left. -Cervical lymphadenopathy may infect be reactive and related to positive Monospot. -Dr. Hays is currently following the case. #Abdominal pain in the setting of elevated liver enzymes and alkaline phosphatase -GI has been consulted. No radiographic evidence of cholelithiasis or choledocholithiasis display cholestatic pattern. -AST/AOT of 330/455, alkaline phosphatase of 214. Negative lipase. -Hepatitis A, B, C, E serologies pending -Abnormal liver enzymes likely related to patient's mononucleosis. 80-100% the patient's infective mononucleosis with abnormal LFTs. Alkaline phosphatase, AST/ALT will be Approximate 5-14 days after onset of symptoms which appropriately correlates clinically. Vital Signs/I&O Vital Signs Date Time Temp Pulse Resp B/P (MAP) Pulse Ox O2 Delivery O2 Flow Rate FiO2 06/15/19 12:45 98.2 88 18 112/71 (85) 98 Room Air I&O- Last 24 Hours up to 6 AM 06/15/19 06:00 Intake Total 710 ml Output Total 0 ml Balance 710 ml Laboratory Data Labs 24H Laboratory Tests 2 06/15/19 06:57: Neutrophils # (Auto) , Nucleated Red Blood Cells % (auto) 0.0, Neutrophils 24L, Band Neutrophils 4, Lymphocytes (Manual) 53H, Monocytes (Manual) 5, Metamyelocytes 2H, Atypical Lymphocytes 12H, Anisocytosis 1+, Microcytosis 1+, Platelet Estimate DECREASED 06/15/19 06:58: Anion Gap 8, Calcium Level 7.9L, Total Bilirubin 3.3H, Aspartate Amino Transf (AST/SGOT) 195H, Alanine Aminotransferase (ALT/SGPT) 317H, Alkaline Phosphatase 239H, Total Protein 5.6L, Albumin 2.5L, Albumin/Globulin Ratio 0.81L CBC/BMP Laboratory Tests 06/15/19 06:57 06/15/19 06:58 Microbiology Microbiology 06/14/19 Blood Culture - Preliminary, Resulted No growth after 24 hours . All specim... 06/13/19 Urine Culture - Final, Complete Allergies Coded Allergies: No Known Allergies (Unverified , 06/13/19) Home Medications Scheduled Norgestimate-Ethinyl Estradiol (Norg-Ee 0.18-0.215-0.25/0.025) 1 Each Tablet, 1 TAB PO QHS, (Reported) ON HOLD UNTIL AFTER MENSTRUATION GME ATTESTATION GME ATTESTATION My faculty preceptor for this patient encounter was physically present during the encounter and was fully available. All aspects of the patient interview, examination, medical decision making process, and medical care plan development were reviewed and approved by the faculty preceptor. The faculty preceptor is aware and concurs with the plan as stated in the body of this note and will attest to such by his/her cosignature. PADMA BERNARD DO Jun 15, 2019 13:48
[2019-06-15] MEDS: KETOROLAC 30 MG/ML VIAL (J1885) IV PRN (19:39)
[2019-06-15] MEDS: PROMETHAZINE INJ 25 MG/ML VIAL (J2550) IV PRN (19:55)
[2019-06-15 21:18] VITALS: BP 109/69
--- NOTE | 2019-06-15 22:35 | CR ---
MEDICAL ONCOLOGY / HEMATOLOGY INPATIENT CONSULT DATE OF SERVICE: 06/14/2019 REQUESTING PHYSICIAN: Chelsea Kc MD DIAGNOSIS Pancytopenia in a patient with significant transaminitis, elevated alkaline phosphatase and bilirubin, right upper quadrant pain, fatigue, and malaise. HISTORY OF PRESENT ILLNESS Tamie is at baseline is a well 18-year-old. On the , yesterday she presented to the emergency room with several days of progressive headaches, fatigue, evolving right upper quadrant discomfort, loss of appetite. CBC showed mostly normal counts with mildly low platelets 122, normal differential except for atypical lymphocytes, but AST, ALT and alkaline phosphatase were severely abnormal with AST 400, ALT 502, alkaline phosphatase 219. Bilirubin also was up to 2.2. Renal function normal. Abdomen ultrasound was essentially a negative study, abdomen and pelvis CT with IV contrast showed a contracted gallbladder without stones and an involuting 2 cm right ovarian cyst and some moderate low density pelvic free fluid, but no significant adenopathy liver or gallbladder area masses, no splenomegaly. Over 24 hours she developed new pancytopenia with WBC this morning 2.9, hemoglobin 10.9, hematocrit 99 with an essentially unchanged differential, mildly elevated retic count. [place] screen was drawn and ultimately tested positive positive. At the bedside Tamie prefers the light to be off. She is very sterile. Complains of headache. Her mother is at bedside. She is quiet; does not do much. Her chief complaint is headache. She denies significant nausea and vomiting, but did have one episode of vomiting in the last several days. PAST MEDICAL HISTORY: None. PAST SURGICAL HISTORY: None. MEDICATIONS AT HOME: Norgestimate-ethinyl estradiol. ALLERGIES: No known drug allergies. FAMILY HISTORY: Negative for malignancy. SOCIAL HISTORY: The patient is not a smoker. Is sexually active. Denies significant alcohol intake. Denies prior testing for HIV or hepatitis. REVIEW OF SYSTEMS: Pertinent positives and negatives as above. In addition the patient denies major drenching night sweats or recent weight loss other than the last day or so. No new rash or joint swelling. No new leg swelling. No diarrhea or constipation. No urinary complaints. Remainder of 12 system review negative. PHYSICAL EXAMINATION: Temperature 97.7, blood pressure 95/48, heart rate 88, respiratory rate 18, O2 sat 98% on room air. Patient is a normal weight young woman lying in bed; quiet but does make good eye contact. No facial rash. Respiratory: Clear lungs to auscultation anteriorly bilaterally. Cardiac: S1, S2. Regular rate and rhythm. No murmur, no gallop. Abdomen is soft but tender, particularly in the right upper quadrant. No hepatic edge appreciated. No splenomegaly. Extremities: No edema. Lymph nodes: No submandibular, occipital or preauricular lymphadenopathy. There is mild palpable right cervical lymphadenopathy, shotty. No palpable supraclavicular or axillary adenopathy bilaterally. LABORATORY DATA As noted. In addition, haptoglobin pending, CMP from today shows AST 223, ALT 356 alkaline phosphatase 234. Lactate dehydrogenase 347, albumin 2.8, normal B12. Normal renal function, calcium 7.9. Correcting for albumin. Urine negative for protein, PT/PTT both mildly elevated, fibrinogen normal, D-dimer 2964. IMPRESSION: 18-year-old woman with new significant transaminitis, headache, right upper quadrant discomfort without hepatomegaly, splenomegaly, liver or spleen mass, or abdominal adenopathy, low reticulocyte count with fairly rapid onset over the last several days. PCR for Reuben-Pierre virus (EBV) pending; at time of seeing the patient monospot pending, later positive. CLINICAL IMPRESSION As above. Most likely a viral illness given prominent liver function abnormalities without objective liver findings, low reticulocyte count, mild pancytopenia. The elevated. PT/PTT are likely part of low grade DIC secondary to infection. RECOMMENDATIONS 1. Originally flow cytometry from peripheral blood was recommended in addition to full hemolysis labs. It appears flow has been cancelled. 2. CMV and parvovirus should also be checked in addition EBV PCR. 3. Infectious disease consult recommended. 4. Consider vitamin K to reverse any progressive coagulopathy. 5. Given positive monospot overall complex of symptoms and signs, lack of evidence of homolysis so far, lack of florid adenopathy other than cervical from the Hem/Onc standpoint would monitor only. Should new significant cytopenias evolve consider peripheral blood flow cytometry. Thank you for this consultation. CREEDMOOR PSYCHIATRIC CENTERLina
[2019-06-16] MEDS: KETOROLAC 30 MG/ML VIAL (J1885) IV PRN ×4 (02:18→22:55)
[2019-06-16] MEDS: PROMETHAZINE INJ 25 MG/ML VIAL (J2550) IV PRN ×4 (02:18→22:55)
[2019-06-16] MEDS: NS 1,000 ML IV SCH ×3 (02:23→22:13)
[2019-06-16] MEDS ORDERED: KETOROLAC 30 MG/ML VIAL (J1885) IV ONE (03:00)
[2019-06-16 05:53] VITALS: BP 99/68
[2019-06-16] MEDS: oxyCODONE 5MG TAB PO PRN ×3 (05:58→20:22)
[2019-06-16] MEDS: ONDANSETRON 4MG/2ML VIAL (J2405) IV PRN ×3 (05:58→20:23)
[2019-06-16 06:21] LABS: HEMATOCRIT 32.7 % (36.0-47.0); HEMOGLOBIN 10.3 g/dl (12.0-15.5); MEAN CORPUSCULAR HEMOGLOBIN 27.7 pg (27.0-33.0); MEAN CORPUSCULAR HGB CONC 31.5 g/dl (32.0-36.5); MEAN CORPUSCULAR VOLUME 87.9 fl (80.0-96.0); RED BLOOD COUNT 3.72 10^6/uL (4.00-5.40)
[2019-06-16 06:29] LABS: PLATELET COUNT, AUTOMATED 96 10^3/uL (150-450)
[2019-06-16 06:46] LABS: C REACTIVE PROTEIN QUANTITATIV 0.56 MG/DL (0.00-0.30)
[2019-06-16 06:51] LABS: ALBUMIN 2.3 GM/DL (3.2-5.2); ALT/SGPT 378 U/L (12-78); BILIRUBIN,TOTAL 3.7 MG/DL (0.2-1.0); BLOOD UREA NITROGEN 6 MG/DL (7-18); CALCIUM LEVEL 7.8 MG/DL (8.5-10.1); CARBON DIOXIDE LEVEL 27 MEQ/L (21-32); CHLORIDE LEVEL 108 MEQ/L (98-107); CREATININE FOR GFR 0.68 MG/DL (0.55-1.30); GLUCOSE, FASTING 83 MG/DL (70-100); POTASSIUM SERUM 3.7 MEQ/L (3.5-5.1); SODIUM LEVEL 141 MEQ/L (136-145); TOTAL PROTEIN 5.4 GM/DL (6.4-8.2)
[2019-06-16 06:53] LABS: ATYPICAL LYMPH 16 % (0-5); LYMPHOCYTES 68 % (16-44); MONOCYTES 5 % (0-5); NEUTROPHILS 11 % (28-66)
[2019-06-16 06:54] LABS: HYPOCHROMASIA 1+; PLATELET ESTIMATE DECREASED (NORMAL)
[2019-06-16] MEDS: PANTOPRAZOLE 40MG INJ (PROTONIX) (C9113) IV SCH (09:28)
[2019-06-16 10:24] LABS: HEPATITIS B SURFACE ANTIBODY NEGATIVE (POSITIVE)
[2019-06-16 10:34] LABS: HEPATITIS B SURFACE ANTIGEN NEGATIVE (NEGATIVE)
[2019-06-16 11:01] LABS: HEPATITIS B CORE ANTIBODY IGM NEGATIVE (NEGATIVE); HEPATITIS C VIRUS ABY INDEX < 0.0 INDEX (<0.8)
[2019-06-16 11:02] LABS: HIV 1&2 SCREEN CENTAUR NEGATIVE (NEGATIVE)
[2019-06-16 11:03] LABS: HEPATITIS A ANTIBODY IGM NEGATIVE (NEGATIVE)
[2019-06-16 14:00] VITALS: BP 110/67
[2019-06-16 19:05] VITALS: BP 106/66
[2019-06-17] VITALS (11 sets, daily range): BP systolic 99–117; BP diastolic 59–76
--- NOTE | 2019-06-17 00:46 | GIPN ---
[facility] GI Progress Note GI Progress Note DATE: Jun 17, 2019 Interval history: Patient is noted to have persistent abdominal pain, nausea and still not able to tolerate solid foods. Patient reports taking liquid diet only. Patient denies any fever or chills, no hematemesis or melena. Patient does report her headaches have resolved and denies any dizziness or neck pain/ rigidity. Exam: Vitals: reviewed General: Alert and oriented x 3, mild to moderate distress from pain. Chest:: S1, S2 heard, bilateral clear air entry.. Abdomen: non-distended, no surgical scars, soft, mild to moderate tenderness in right upper, epigastric and left upper quadrant., no palpable masses, normal bowel sounds heard. ACTIVITIES SPECIALIST: no focal motor or sensory deficits. Moves all extremities Skin: no rash. Labs: reviewed. Monospot test positive. Acute viral panel negative. Rest of the viral panel pending. CT Neck: showed bilateral cervical lymphadenopathy. Labs showed iron deficiency anemia. Haptoglobin pending and elevated LDH. Imaging: reviewed. Impression: -- Acute onset abdominal pain (upper abdomen) with flu like illness, nausea, vomiting, headaches, with bilateral cervical lymphadenopathy (painful/tender), labs showing pancytopenia, with abnormal liver panel, normal CBD on CT abdomen, -- likely viral infection -- Infectious mononucleosis ( rule out other infectious etiologies) vs rule out lymphoma . -- Pancytopenia with anemia but iron studies showed low transferrin saturation, with abnormal liver panel --cholestatic and elevated LDH --Likely related to underlying viral illness but need to rule out other causes. Recommendations: - Patient educated about the test results, possible differential diagnoses and All questions answered. - Closely monitor mental status - follow up the work up results. - Continue PPI for now - Follow ID and Hematology recommendations. - In view of MARCELLE, persistently worsening liver panel, discussed further management/ evaluation. - Repeat Ultrasound abdomen to evaluation liver and biliary tree. - Patient is schedule for EGD tomorrow - The procedure, indications, risks (bleeding, perforation, infection, hypotension, respiratory depression, allergy, need for endotracheal intubation, surgery, colostomy, cardiac arrest, even ), benefits, limitations (e.g., missing a lesion), and all other alternatives (including no intervention) were explained to the patient and her mother. - GI will follow.. Plan of care discussed with patient and primary team. Patient verbalized understanding and agreed with the plan. Allergies Coded Allergies: No Known Allergies (Unverified , 06/13/19) Current Medications Current Medications Medications (Trade) Dose Ordered Sig/Cayden Route PRN Reason Start Time Stop Time Status Last Admin Dose Admin Acetaminophen (Tylenol Tab) 650 mg Q4H PRN PO PAIN OR FEVER 06/14/19 01:30 06/14/19 04:51 DC Enoxaparin Sodium (Lovenox) 40 mg DAILY SC 06/14/19 09:00 06/14/19 10:45 DC Home Med (Med Rec Complete!) ASDIRECTED XX 06/14/19 01:15 06/14/19 01:08 DC Ibuprofen (Advil) 600 mg Q6HP PRN PO MODERATE PAIN (PS 5-7) 06/14/19 05:00 06/14/19 05:06 DC Ketorolac Tromethamine (ToRADol) 15 mg Q6H IV 06/14/19 16:00 06/15/19 11:41 DC 06/15/19 09:25 Ketorolac Tromethamine (ToRADol) 15 mg Q6HP PRN IV pain/ headache 06/15/19 11:45 06/16/19 02:48 DC 06/16/19 02:18 Ketorolac Tromethamine (ToRADol) 30 mg Q6HP PRN IV severe pain 06/14/19 01:30 06/14/19 10:36 DC 06/14/19 09:56 Ketorolac Tromethamine (ToRADol) 30 mg Q6HP PRN IV pain/ headache/fever 06/16/19 09:00 06/21/19 08:59 06/16/19 22:55 Ondansetron HCl (ZOFRAN INJection) 4 mg Q4HP PRN IV NAUSEA OR VOMITING 06/14/19 04:45 06/16/19 20:23 Oxycodone HCl (Roxicodone, Oxyir) 5 mg Q4HP PRN PO PAIN 06/14/19 10:45 06/16/19 20:22 Pantoprazole Sodium (Protonix) 40 mg Q24H IV 06/14/19 09:00 06/16/19 09:28 Piperacillin Sod/ Tazobactam Sod 3.375 gm/Dextrose 50 ml @ 50 mls/hr Q6H IV 06/14/19 06:00 06/14/19 19:47 DC 06/14/19 19:30 Promethazine HCl (PHENERGAN INJection) 12.5 mg Q6HP PRN IV NAUSEA 06/15/19 18:30 06/16/19 22:55 Sodium Chloride 1,000 ml @ 100 mls/hr Q10H IV 06/14/19 20:00 06/16/19 22:13 VS,Fishbone, I+O VS, Fishbone, I+O Laboratory Tests 06/16/19 05:40 Vital Signs Date Time Temp Pulse Resp B/P (MAP) Pulse Ox O2 Delivery O2 Flow Rate FiO2 06/17/19 00:00 99.3 90 18 114/65 (81) 100 Room Air I&O- Last 24 Hours up to 6 AM 06/17/19 05:59 Intake Total 720 ml Balance 720 ml RUFINO KANG MD Jun 17, 2019 00:46
[2019-06-17] MEDS: oxyCODONE 5MG TAB PO PRN ×3 (02:12→17:32)
[2019-06-17] MEDS: ONDANSETRON 4MG/2ML VIAL (J2405) IV PRN ×3 (02:12→18:20)
[2019-06-17] MEDS: KETOROLAC 30 MG/ML VIAL (J1885) IV PRN ×3 (04:45→21:03)
[2019-06-17] MEDS: PROMETHAZINE INJ 25 MG/ML VIAL (J2550) IV PRN ×3 (04:45→21:03)
[2019-06-17] MEDS: NS 1,000 ML IV SCH (06:48)
[2019-06-17 07:15] LABS: HEMATOCRIT 34.4 % (36.0-47.0); HEMOGLOBIN 10.9 g/dl (12.0-15.5); MEAN CORPUSCULAR HEMOGLOBIN 27.8 pg (27.0-33.0); MEAN CORPUSCULAR HGB CONC 31.7 g/dl (32.0-36.5); MEAN CORPUSCULAR VOLUME 87.8 fl (80.0-96.0); PLATELET COUNT, AUTOMATED 110 10^3/uL (150-450); RED BLOOD COUNT 3.92 10^6/uL (4.00-5.40); WHITE BLOOD COUNT 7.8 10^3/uL (4.0-10.0)
[2019-06-17 07:38] LABS: ALBUMIN 2.2 GM/DL (3.2-5.2); ALT/SGPT 418 U/L (12-78); BLOOD UREA NITROGEN 6 MG/DL (7-18); CALCIUM LEVEL 7.8 MG/DL (8.5-10.1); CARBON DIOXIDE LEVEL 29 MEQ/L (21-32); CHLORIDE LEVEL 107 MEQ/L (98-107); CREATININE FOR GFR 0.72 MG/DL (0.55-1.30); GLUCOSE, FASTING 83 MG/DL (70-100); POTASSIUM SERUM 3.2 MEQ/L (3.5-5.1); SODIUM LEVEL 139 MEQ/L (136-145); TOTAL PROTEIN 5.6 GM/DL (6.4-8.2)
[2019-06-17 07:50] LABS: ATYPICAL LYMPH 16 % (0-5); LYMPHOCYTES 61 % (16-44); MONOCYTES 4 % (0-5); MYELOCYTES 1 % (0-0); NEUTROPHILS 16 % (28-66)
[2019-06-17 07:51] LABS: PLATELET ESTIMATE DECREASED (NORMAL)
[2019-06-17 07:52] LABS: ANISOCYTOSIS 1+; SMUDGE CELLS 1+
[2019-06-17] MEDS: PANTOPRAZOLE 40MG INJ (PROTONIX) (C9113) IV SCH (08:44)
[2019-06-17] MEDS ORDERED: POTASSIUM CHLORIDE INJ 40 MEQ in NS 1,000 ML IV SCH (10:51)
[2019-06-17] MEDS ORDERED: KCL 40MEQ in NS 1000ML 1,000 ML IV SCH (12:00)
--- NOTE | 2019-06-17 12:30 | REP ---
GALLBLADDER ULTRASOUND: 06/17/2019 COMPARISON: CT and gallbladder ultrasound 06/13/2019. CLINICAL HISTORY: Elevated LFTs. Evaluate liver and biliary tree. FINDINGS: The liver is homogeneous in echotexture without discrete hepatic mass, hepatomegaly, intrahepatic biliary dilatation nor adjacent ascites. The gallbladder is again contracted but less so. There is no visible sludge or stone within. There is wall thickening with hyperemia and wall thickness up to 4 mm. There is a positive sonographic Cail's sign. Common duct is 5.3 mm without a filling defect. Pancreas is of rather limited evaluation due to gas shadowing. That portion seen unremarkable. Right kidney is 12.8 x 5.3 x 4.3 cm in greatest diameter. A trace right pleural effusion was seen. IMPRESSION: 1. Contracted gallbladder in a patient who has fasted for over 12 hours. Wall thickness up to 4 mm with hyperemia. No stone or visible sludge. I am concerned about acute acalculous cholecystitis. 2. Common duct 5.3 mm without a filling defect. 3. No ascites. 4. Liver grossly intact. No intrahepatic biliary dilatation. 5. Limited evaluation of the pancreas due to gas shadowing. 6. Right kidney without stone or hydronephrosis. 7. Trace right pleural effusion. Electronically Signed by Amador Montemayor MD 06/17/2019 07:58 P
--- NOTE | 2019-06-17 12:34 | IPNPDOC ---
Subjective Date Seen The patient was seen on 06/17/19. Subjective Chief Complaint/HPI Continues to have abdominal pain and nausea, had an episode of vomiting last night. Still not able to keep any food down. No fever or chills. No SOb Objective Physical Examination General Exam: Positive: Alert, Cooperative, No Acute Distress Eye Exam: Positive: PERRLA, Conjunctiva & lids normal, EOMI; Negative: Sclera icteric ENT Exam: Positive: Atraumatic, Mucous membr. moist/pink, Pharynx Normal Neck Exam: Positive: Supple, Other (no neck rigidity); Negative: JVD, thyromegaly Chest Exam: Positive: Clear to auscultation, Normal air movement Heart Exam: Positive: Rate Normal, Regular Rhythm, Normal S1, Normal S2; Negative: Murmurs, Rubs Telemetry: Positive: No significant arrhythmia Abdomen Exam: Positive: BS Hypoactive, Soft, Tenderness (in all the quadrants.), Other (rebound in the left lower quadrant); Negative: Hepatospenomegaly, Mass Extremity Exam: Positive: Normal pulses; Negative: Clubbing, Cyanosis, Edema Skin Exam: Positive: Nl turgor and temperature; Negative: Breakdown, Lesion Neuro Exam: Positive: Normal Gait, Normal Speech, Cranial Nerves 3-12 NL, Reflexes 2+ Psych Exam: Positive: Mental status NL, Mood NL, Oriented x 3 Assessment /Plan Assessment 18 yo woman with no significant past medical history who presented with RUQ pain with N/V/fever c/f biliary tree pathology at risk for cholangitis and started on empiric zosyn, however with a contracted gall bladder without evidence of stones with report of calcification on urgent care imaging this is probably artifact , there is no renal stone also in CT abdomen.. SHe was admitted for possible acute cholecysistis or cholangitis/ viral illness/ Hematological malignancy. Transaminitis with direct hyperbilirubinemia due to viral illness. Monospot test is positive , EBV pcr is pending. Most probably Infectious Mononucleosis. Rule out other viral etiology, tests ordered in progress. No GB pathology CT neck with multiple lymphadenopathy Have consulted Pediatrics as she follows with pediatric practice. Worsening LFTs with mixed pattern of jaundice planned for EGD by Dr Jones. Pancytopenia with atypical lymphocytes improving. Acute viral illness VS hematological malignancy Consulted Dr Hays ;and Dr Romero JAIDEN negative. ordered CMV pcr, EBV qualitative pcr, Herpes 1 and 2 pcr. Flow cytometry cancelled as pathologist said this seems like mono and after she is better from mono if thrombocytopenia persists then only she should get a flow cytometry. Hypokalemia replaced. Plan/VTE VTE Prophylaxis Ordered?: Yes VS, I&O, 24H, Fishbone Vital Signs/I&O Vital Signs Date Time Temp Pulse Resp B/P (MAP) Pulse Ox O2 Delivery O2 Flow Rate FiO2 06/17/19 12:12 99.7 82 18 117/60 (79) 98 Room Air I&O- Last 24 Hours up to 6 AM 06/17/19 06:00 Intake Total 2280 ml Balance 2280 ml Laboratory Data 24H LABS Laboratory Tests 2 06/17/19 06:56: Lymphocytes # (Auto) , Nucleated Red Blood Cells % (auto) 0.0, Neutrophils 16L, Band Neutrophils 2, Lymphocytes (Manual) 61H, Monocytes (Manual) 4, Myelocytes 1H, Atypical Lymphocytes 16H, Anisocytosis 1+, Smudge Cells 1+, Platelet Estimate DECREASED, Anion Gap 3L, Calcium Level 7.8L, Total Bilirubin 4.0H, Aspartate Amino Transf (AST/SGOT) 326H, Alanine Aminotransferase (ALT/SGPT) 41 8H, Alkaline Phosphatase 350H, Total Protein 5.6L, Albumin 2.2L, Albumin/Globulin Ratio 0.65L CBC/BMP Laboratory Tests 06/17/19 06:56 Microbiology Microbiology 06/14/19 Blood Culture - Preliminary, Resulted No Growth after 72 hours. All specime... 06/13/19 Urine Culture - Final, Complete CHAPARRITA LAM MD Jun 17, 2019 12:34
[2019-06-17 13:21] LABS: BILIRUBIN,DIRECT 3.4 MG/DL (0.0-0.2)
[2019-06-17] MEDS ORDERED: LIDOCAINE 2% INJ 100 MG/5 ML SDV (FOR ANES.) As Ordered ONE (15:20)
[2019-06-17] MEDS ORDERED: MIDAZOLAM INJ 2 MG/2 ML VIAL (J2250) As Ordered ONE (15:20)
[2019-06-17] MEDS ORDERED: fentaNYL 100 MCG/2 ML INJECTION (J3010) As Ordered ONE ×2 (15:20→15:40)
[2019-06-17] MEDS ORDERED: propofoL 200 MG/20 ML VIAL As Ordered ONE (15:20)
--- NOTE | 2019-06-17 15:40 | ROOR ---
Patient Name: Tamie Maher Procedure Date: 06/17/2019 2:49 PM Date of : 2000 Age: 18 Room: Main OR Gender: Female Note Status: Finalized Procedure: Upper GI endoscopy Indications: Epigastric abdominal pain, Abdominal pain in the right upper quadrant, Persistent vomiting of unknown cause Providers: Jules Jones MD Referring MD: Anita James Md Requesting Provider: Medicines: Monitored Anesthesia Care Complications: No immediate complications. Procedure: Pre-Anesthesia Assessment: - Prior to the procedure, a History and Physical was performed, and patient medications and allergies were reviewed. The patient is competent. The risks and benefits of the procedure and the sedation options and risks were discussed with the patient. All questions were answered and informed consent was obtained. Patient identification and proposed procedure were verified by the physician, the nurse and the anesthesiologist in the procedure room. Mental Status Examination: alert and oriented. Airway Examination: normal oropharyngeal airway and neck mobility. Respiratory Examination: clear to auscultation. CV Examination: normal. Prophylactic Antibiotics: The patient does not require prophylactic antibiotics. Prior Anticoagulants: The patient has taken no previous anticoagulant or antiplatelet agents. ASA Grade Assessment: II - A patient with mild systemic disease. After reviewing the risks and benefits, the patient was deemed in satisfactory condition to undergo the procedure. The anesthesia plan was to use monitored anesthesia care (MAC). Immediately prior to administration of medications, the patient was re-assessed for adequacy to receive sedatives. The heart rate, respiratory rate, oxygen saturations, blood pressure, adequacy of pulmonary ventilation, and response to care were monitored throughout the procedure. The physical status of the patient was re-assessed after the procedure. The Endoscope was introduced through the mouth, and advanced to the second part of duodenum. The upper GI endoscopy was accomplished without difficulty. The patient tolerated the procedure well. Findings: The examined esophagus was normal. The Z-line was regular and was found 39 cm from the incisors. No gross lesions were noted in the entire examined stomach. Biopsies were taken with a cold forceps for Helicobacter pylori testing. Verification of patient identification for the specimen was done by the physician and nurse using the patient's name, date and medical record number. Estimated blood loss was minimal. The ampulla, duodenal bulb and second portion of the duodenum were normal. There is no endoscopic evidence of mass at ampulla. Bilious fluid draining noted in the entire examined duodenum. Impression: - Normal esophagus. - Z-line regular, 39 cm from the incisors. - No gross lesions in the stomach. Biopsied. - Normal ampulla, duodenal bulb and second portion of the duodenum. Recommendation: - Patient has a contact number available for emergencies. The signs and symptoms of potential delayed complications were discussed with the patient. Return to normal activities tomorrow. Written discharge instructions were provided to the patient. - Advance diet as tolerated. - Continue present medications. - Await pathology results. - If Biopsy shows H. pylori will need therapy with antibiotic course.. - Return patient to [facility] for ongoing care. - Perform magnetic resonance imaging (MRI) with gadolinium at appointment to be scheduled. - Return to primary care physician. - Telephone GI clinic for pathology results in 1 week. Jules Jones MD Jules Jones MD 06/17/2019 3:40:32 PM Electronically signed by Jules Jones MD Number of Addenda: 0 Note Initiated On: 06/17/2019 2:49 PM Estimated Blood Loss: Estimated blood loss was minimal.
[2019-06-17] MEDS ORDERED: fentaNYL 100 MCG/2 ML INJECTION (J3010) IV PRN (15:45)
[2019-06-17] MEDS: SENOKOT S TAB PO SCH (22:25)
[2019-06-18] VITALS: BP 96/53
[2019-06-18] MEDS: ONDANSETRON 4MG/2ML VIAL (J2405) IV PRN ×4 (00:19→16:22)
[2019-06-18] MEDS: oxyCODONE 5MG TAB PO PRN ×4 (00:22→22:13)
[2019-06-18] MEDS: PROMETHAZINE INJ 25 MG/ML VIAL (J2550) IV PRN ×2 (03:24→09:47)
[2019-06-18] MEDS: KETOROLAC 30 MG/ML VIAL (J1885) IV PRN ×3 (03:27→18:50)
[2019-06-18 07:30] LABS: HEMATOCRIT 30.6 % (36.0-47.0); HEMOGLOBIN 9.8 g/dl (12.0-15.5); MEAN CORPUSCULAR HEMOGLOBIN 27.7 pg (27.0-33.0); MEAN CORPUSCULAR VOLUME 86.4 fl (80.0-96.0); PLATELET COUNT, AUTOMATED 120 10^3/uL (150-450); RED BLOOD COUNT 3.54 10^6/uL (4.00-5.40)
[2019-06-18 07:37] VITALS: BP 108/59
[2019-06-18 07:50] LABS: ALBUMIN 2.1 GM/DL (3.2-5.2); ALT/SGPT 387 U/L (12-78); BILIRUBIN,TOTAL 3.7 MG/DL (0.2-1.0); BLOOD UREA NITROGEN 7 MG/DL (7-18); CALCIUM LEVEL 7.8 MG/DL (8.5-10.1); CARBON DIOXIDE LEVEL 28 MEQ/L (21-32); CHLORIDE LEVEL 105 MEQ/L (98-107); CREATININE FOR GFR 0.72 MG/DL (0.55-1.30); GLUCOSE, FASTING 84 MG/DL (70-100); INR 1.24; POTASSIUM SERUM 3.6 MEQ/L (3.5-5.1); PROTHROMBIN TIME 15.3 SECONDS (11.8-14.0); SODIUM LEVEL 138 MEQ/L (136-145); TOTAL PROTEIN 5.4 GM/DL (6.4-8.2)
[2019-06-18 08:05] LABS: ANISOCYTOSIS 1+; ATYPICAL LYMPH 11 % (0-5); HYPOCHROMASIA 1+; LYMPHOCYTES 76 % (16-44); METAMYELOCYTES 1 % (0-0); MONOCYTES 3 % (0-5); NEUTROPHILS 9 % (28-66); PLATELET ESTIMATE DECREASED (NORMAL)
[2019-06-18 08:06] LABS: MICROCYTOSIS 1+
[2019-06-18] MEDS: PANTOPRAZOLE 40MG INJ (PROTONIX) (C9113) IV SCH (09:02)
[2019-06-18] MEDS: SENOKOT S TAB PO SCH ×2 (09:02→21:45)
[2019-06-18] MEDS ORDERED: POTASSIUM CHLORIDE 10 MEQ SR TABLET PO ONE (10:00)
[2019-06-18 15:53] VITALS: BP 103/60
[2019-06-18 16:00] VITALS: BP 103/60
[2019-06-18] MEDS: MIRALAX *UNIT DOSE* 17GM PACKET PO SCH (17:38)
[2019-06-18 18:00] VITALS: BP 103/60
[2019-06-18 20:00] VITALS: BP 101/65
--- NOTE | 2019-06-18 20:08 | IPNPDOC ---
Text Note Date of Service The patient was seen on 06/18/19. NOTE Subjective: Patient continues to have mild abdominal pain and nausea. Patient was able to tolerate food today, no any vomiting. Objective: VITAL SIGNS: Please see below. GENERAL APPEARANCE: Well-nourished, well-developed, not in apparent distress HEENT: Normocephalic, atraumatic. Mucous members moist and pink CARDIOVASCULAR: Regular rate and rhythm. No murmurs, rubs or gallops. Radial pulses are intact. There is no lower extremity edema LUNGS: CTA ABDOMEN: Abdomen is diffusely tender, no hepatosplenomegaly, no rebound, bowel sounds present MUSCULOSKELETAL: Range of motion is intact in all 4 extremities NEUROLOGICAL: Cranial nerves II-12 are grossly intact. Speech is not dysarthric 18 yo woman with no significant past medical history who presented with RUQ pain with N/V/fever, patient was diagnosed with infectious mononucleosis Infectious mononucleosis CT scan showed multiple neck lymphadenopathy, most likely reactive Monospot test is positive Supportive treatment Avoid contact sports for next few months Lyme, CMV, parvo and HSV serologies remain pending. Abnormal LFT Secondary to infectious mononucleosis EGD did not reveal any ulcerations GI has been consulted. No radiographic evidence of cholelithiasis or choledocholithiasis display cholestatic pattern Pancytopenia with atypical lymphocytes Most likely secondary to infectious mononucleosis Hepatitis panel negative Hypokalemia replaced. VS,Fishbone, I+O VS, Fishbone, I+O Laboratory Tests 06/18/19 07:01 Vital Signs Date Time Temp Pulse Resp B/P (MAP) Pulse Ox O2 Delivery O2 Flow Rate FiO2 06/18/19 18:00 I&O- Last 24 Hours up to 6 AM 06/18/19 05:59 Intake Total 3040 ml Output Total 1151 ml Balance 1889 ml ALBERT CAIN DO Jun 18, 2019 20:07
[2019-06-19] VITALS: BP 101/61
[2019-06-19] MEDS: KETOROLAC 30 MG/ML VIAL (J1885) IV PRN ×2 (04:13→11:42)
[2019-06-19 07:19] LABS: HEMATOCRIT 30.3 % (36.0-47.0); HEMOGLOBIN 9.7 g/dl (12.0-15.5); MEAN CORPUSCULAR HEMOGLOBIN 27.5 pg (27.0-33.0); MEAN CORPUSCULAR VOLUME 85.8 fl (80.0-96.0); PLATELET COUNT, AUTOMATED 123 10^3/uL (150-450); RED BLOOD COUNT 3.53 10^6/uL (4.00-5.40); WHITE BLOOD COUNT 8.8 10^3/uL (4.0-10.0)
[2019-06-19 07:33] LABS: ANISOCYTOSIS 1+; ATYPICAL LYMPH 12 % (0-5); LYMPHOCYTES 55 % (16-44); MONOCYTES 3 % (0-5); NEUTROPHILS 30 % (28-66); PLATELET ESTIMATE NORMAL (NORMAL)
[2019-06-19 07:40] LABS: ALT/SGPT 357 U/L (12-78); BILIRUBIN,TOTAL 3.4 MG/DL (0.2-1.0); BLOOD UREA NITROGEN 7 MG/DL (7-18); CARBON DIOXIDE LEVEL 29 MEQ/L (21-32); CHLORIDE LEVEL 102 MEQ/L (98-107); CREATININE FOR GFR 0.67 MG/DL (0.55-1.30); GLUCOSE, FASTING 91 MG/DL (70-100); POTASSIUM SERUM 3.4 MEQ/L (3.5-5.1); SODIUM LEVEL 136 MEQ/L (136-145); TOTAL PROTEIN 5.5 GM/DL (6.4-8.2)
[2019-06-19 08:00] VITALS: BP 117/73
[2019-06-19] MEDS ORDERED: POTASSIUM CHLORIDE 10 MEQ SR TABLET PO ONE (08:00)
[2019-06-19] MEDS: SENOKOT S TAB PO SCH ×2 (08:44→21:00)
[2019-06-19] MEDS: MIRALAX *UNIT DOSE* 17GM PACKET PO SCH (08:44)
[2019-06-19] MEDS: PANTOPRAZOLE 40MG INJ (PROTONIX) (C9113) IV SCH (08:45)
[2019-06-19 12:00] VITALS: BP 110/71
--- NOTE | 2019-06-19 13:38 | IPNPDOC ---
Text Note Date of Service The patient was seen on 06/19/19. NOTE Subjective: Patient is able to tolerate food, denies nausea and vomiting, denies diarrhea or dysuria. She continues to have poor appetite and complains of mild diffuse abdominal pain Objective: VITAL SIGNS: Please see below. GENERAL APPEARANCE: Well-nourished, well-developed, not in apparent distress HEENT: Normocephalic, atraumatic. Mucous members moist and pink CARDIOVASCULAR: Regular rate and rhythm. No murmurs, rubs or gallops. Radial pulses are intact. There is no lower extremity edema LUNGS: CTA ABDOMEN: Abdomen is diffusely tender, no hepatosplenomegaly, no rebound, bowel sounds present MUSCULOSKELETAL: Range of motion is intact in all 4 extremities NEUROLOGICAL: Cranial nerves II-12 are grossly intact. Speech is not dysarthric 18 yo woman with no significant past medical history who presented with RUQ pain with N/V/fever, patient was diagnosed with infectious mononucleosis Infectious mononucleosis CT scan showed multiple neck lymphadenopathy, most likely reactive Monospot test is positive Supportive treatment Avoid contact sports for the next few months Lyme, CMV, parvo and HSV serologies remain pending. Alkaline phosphatase continues to rise. Transaminitis improved We'll check MRI of abdomen Will check anti smooth ab, BRETT, LKM Ab, anti mitochondrial Ab in order to r/o auto immune hep Abnormal LFT Secondary to infectious mononucleosis EGD did not reveal any ulcerations GI has been consulted. No radiographic evidence of cholelithiasis or ch oledocholithiasis display cholestatic pattern Pancytopenia with atypical lymphocytes Most likely secondary to infectious mononucleosis Hepatitis panel negative Hypokalemia replaced. VS,Fishbone, I+O VS, Fishbone, I+O Laboratory Tests 06/19/19 06:55 Vital Signs Date Time Temp Pulse Resp B/P (MAP) Pulse Ox O2 Delivery O2 Flow Rate FiO2 06/19/19 09:00 16 06/19/19 08:00 98.1 100 117/73 (88) 96 Room Air I&O- Last 24 Hours up to 6 AM 06/19/19 06:00 Intake Total 2070 ml Output Total 1550 ml Balance 520 ml ALBERT CAIN DO Jun 19, 2019 13:38
[2019-06-19 16:00] VITALS: BP 110/64
[2019-06-19] MEDS: oxyCODONE 5MG TAB PO PRN (16:12)
[2019-06-19] MEDS ORDERED: ZOFR4TAB16 PO (16:47)
[2019-06-19] MEDS ORDERED: PEG1POW PO (16:47)
[2019-06-19] MEDS ORDERED: QC A650T3 PO (16:47)
[2019-06-19] MEDS: PROMETHAZINE INJ 25 MG/ML VIAL (J2550) IV PRN (17:18)
[2019-06-19] MEDS ORDERED: ONDANSETRON 4 MG TAB (S0181) PO PRN (18:00)
[2019-06-19 20:00] VITALS: BP 108/62
[2019-06-19] MEDS: IBUPROFEN 600 MG TAB PO PRN (20:08)
--- NOTE | 2019-06-19 20:15 | IPNPDOC ---
Date Seen The patient was seen on 06/19/19. Progress Note Subjective: Patient is a 18 year old female with no significant past medical history who presented with RUQ pain with nausea, vomiting, and fever. Patient was diagnosed with infectious mononucleosis. Patient states that she does not feel her best but she is no longer having severe abdominal pain and is "able to keep food down." Patient still has fever but wants to go home, she has more sore throat . She denies nausea, vomiting, chest pain, and shortness of breath. Objective: VITAL SIGNS: Please see below. GENERAL APPEARANCE: No acute distress, she is sitting comfortably, does state she is more tired than usual but better than past few days CARDIOVASCULAR: Regular rate and rhythm. +S1, S2. No murmurs, rubs or gallops. LUNGS: Clear to auscultation b/l. ABDOMEN: Abdomen is tender to palpation- no guarding, no hepatosplenomegaly, no rebound tenderness EXTREMITIES: Peripheral pulses 2+ b/l ASSESSMENT: Patient is a 18 year old woman with no significant past medical history who presented with RUQ pain with nausea, vomiting, and fever with a positive Monoscreen and abnormal LFTs. PLAN: 1. Infectious mononucleosis: Avoid contact sports for next few months, doctors note written to excuse patient from "physical conditioning" for this semester. LFTs are improved with AST 268 from 326; ALT improved with 357 from 418. Consider repeat liver enzymes in one to two weeks. Lyme, CMV, parvo and HSV serologies are pending. Schedule abdominal MRI as outpatient if cannot be done tonight if LFT not improving 2. Persistent fever: She spiked a temp to 103 so her discharge was put on hold DISPOSITION: Patient is ready for discharge. Patient can follow up outpatient for MRI. Patient should consider follow up with Dr Jones with the results of MRI in one to two weeks. Not necessary to follow up with Dr Romero for infectious disease management, can follow up with primary care provider her kiosk sales representative Patient seen and discussed with Dr Jon Romero, infectious disease preceptor. GME ATTESTATION My faculty preceptor for this patient encounter was physically present during the encounter and was fully available. All aspects of the patient interview, examination, medical decision making process, and medical care plan development were reviewed and approved by the faculty preceptor. The faculty preceptor is aware and concurs with the plan as stated in the body of this note and will attest to such by his/her cosignature. VS, I&O, 24H, Fishbone Vital Signs/I&O Vital Signs Date Time Temp Pulse Resp B/P (MAP) Pulse Ox O2 Delivery O2 Flow Rate FiO2 06/19/19 17:00 16 06/19/19 16:00 100.5 94 110/64 (79) 96 Room Air I&O- Last 24 Hours up to 6 AM 06/19/19 06:00 Intake Total 2070 ml Output Total 1550 ml Balance 520 ml Laboratory Data 24H LABS Laboratory Tests 2 06/19/19 06:55: Lymphocytes # (Auto) , Nucleated Red Blood Cells % (auto) 0.0, Neutrophils 30, Lymphocytes (Manual) 55H, Monocytes (Manual) 3, Atypical Lymphocytes 12H, Anisocytosis 1+, Platelet Estimate NORMAL, Anion Gap 5L, Calcium Level 8.0L, Total Bilirubin 3.4H, Aspartate Amino Transf (AST/SGOT) 268H, Alanine Aminotransferase (ALT/SGPT) 357H, Alkaline Phosphatase 504H, Total Protein 5.5L, Albumin 2.0L, Albumin/Globulin Ratio 0.57L 06/19/19 13:11: CBC/BMP Laboratory Tests 06/19/19 06:55 Microbiology Microbiology 06/14/19 Blood Culture - Final, Complete NO GROWTH AFTER 5 DAYS 06/13/19 Urine Culture - Final, Complete JORGE DARLING OMS-IV Jun 19, 2019 20:15 Jon Romero MD Jun 19, 2019 21:28
[2019-06-19] MEDS ORDERED: ACETAMINOPHEN TAB 650MG DOSE (2X325MG) PO ONE (21:45)
[2019-06-20] VITALS: BP 107/61
[2019-06-20 04:30] VITALS: BP 94/55
[2019-06-20 07:11] LABS: HEMATOCRIT 32.9 % (36.0-47.0); HEMOGLOBIN 10.4 g/dl (12.0-15.5); MEAN CORPUSCULAR HEMOGLOBIN 27.4 pg (27.0-33.0); MEAN CORPUSCULAR HGB CONC 31.6 g/dl (32.0-36.5); MEAN CORPUSCULAR VOLUME 86.8 fl (80.0-96.0); PLATELET COUNT, AUTOMATED 136 10^3/uL (150-450); RED BLOOD COUNT 3.79 10^6/uL (4.00-5.40); WHITE BLOOD COUNT 6.7 10^3/uL (4.0-10.0)
[2019-06-20 07:34] LABS: ATYPICAL LYMPH 7 % (0-5); LYMPHOCYTES 62 % (16-44); MONOCYTES 3 % (0-5); NEUTROPHILS 28 % (28-66); PLATELET ESTIMATE NORMAL (NORMAL)
[2019-06-20 07:35] LABS: BLOOD UREA NITROGEN 5 MG/DL (7-18); CALCIUM LEVEL 8.1 MG/DL (8.5-10.1); CARBON DIOXIDE LEVEL 33 MEQ/L (21-32); CHLORIDE LEVEL 105 MEQ/L (98-107); CREATININE FOR GFR 0.59 MG/DL (0.55-1.30); GLUCOSE, FASTING 95 MG/DL (70-100); POTASSIUM SERUM 3.6 MEQ/L (3.5-5.1); SODIUM LEVEL 140 MEQ/L (136-145)
[2019-06-20 08:00] VITALS: BP 96/54
[2019-06-20 08:06] LABS: HAPTOGLOBIN 147 mg/dL (33-278); Methylmalonic Acid 161 nmol/L (0-378)
[2019-06-20 08:35] LABS: ALBUMIN 2.1 GM/DL (3.2-5.2); ALT/SGPT 361 U/L (12-78); BILIRUBIN,DIRECT 2.6 MG/DL (0.0-0.2); BILIRUBIN,TOTAL 2.9 MG/DL (0.2-1.0); TOTAL PROTEIN 5.9 GM/DL (6.4-8.2)
[2019-06-20] MEDS: MIRALAX *UNIT DOSE* 17GM PACKET PO SCH (09:00)
[2019-06-20] MEDS: SENOKOT S TAB PO SCH (09:27)
[2019-06-20] MEDS: IBUPROFEN 600 MG TAB PO PRN ×2 (09:28→15:28)
[2019-06-20] MEDS: PANTOPRAZOLE 40MG INJ (PROTONIX) (C9113) IV SCH (09:28)
[2019-06-20 12:00] VITALS: BP 109/67
[2019-06-20] MEDS ORDERED: ADVI100T PO (14:17)
[2019-06-20 16:00] VITALS: BP_SYST 141; BP_SYST 98; BP_DIAS 66; BP_DIAS 88
--- NOTE | 2019-06-20 19:34 | DS.PDOC ---
Discharge Summary General Date of Admission Jun 14, 2019 at 01:21 Date of Discharge 06/20/19 Discharge Summary PROCEDURES PERFORMED DURING STAY: [None]. ADMITTING DIAGNOSES: Infectious mononucleosis Abnormal LFT DISCHARGE DIAGNOSES: Infectious mononucleosis Abnormal LFT COMPLICATIONS/CHIEF COMPLAINT: Bandemia;Biliary Obstruction;Leukopenia. HISTORY OF PRESENT ILLNESS: 18 year old female patient with no prior medical comorbidities, was admitted to [facility] for headaches, upper abdominal pain, nausea and vomiting. Patient is noted to have abnormal liver tests and GI was consulted for the same. Patient reports her symptoms started cutely around 5 days ago with dark orange coloured urine, subsequently with headaches, upper abdominal pain, nausea, vominting, which continued to get worse and unable to tolerate any oral diet. The abdominal pain is in upper abdomen, extending from righ soraya quadrant to left upper quadrant area, waxing and waning, sometimes sharp pain, worsening with pressure/palpation. Patient denies any measured fever, no nuchal rigidity, no visual disturbances but has some photophobia. Pateint deana reports swelling of the neck lymph nodes. Patient denies taking any OTC medications, herbal supplements, heavy alcohol use or any IVDA. HOSPITAL COURSE: During hospital stay patient was diagnosed with infectious mononucleosis. The following issue addressed Infectious mononucleosis CT scan showed multiple neck lymphadenopathy, most likely reactive Monospot test is positive Recommended Supportive treatment Avoid contact sports for the next few months Lyme, CMV, parvo and HSV serologies remain pending. Alkaline phosphatase continues to rise. Transaminitis improved MRI of abdomen should be done in the outpatient settings Will check anti smooth ab, BRETT, LKM Ab, anti mitochondrial Ab in order to r/o auto immune hep Abnormal LFT Secondary to infectious mononucleosis EGD did not reveal any ulcerations GI has been consulted. No radiographic evidence of cholelithiasis or cho ledocholithiasis display cholestatic pattern Pancytopenia with atypical lymphocytes Most likely secondary to infectious mononucleosis Hepatitis panel negative DISCHARGE MEDICATIONS: Please see below. ALLERGIES: Please see below. PHYSICAL EXAMINATION ON DISCHARGE: VITAL SIGNS: Please see below. General: Alert and oriented x 3, mild to moderate distress from pain. Chest:: S1, S2 heard, bilateral clear air entry.. Abdomen: non-distended, no surgical scars, soft, mild to moderate tenderness in right upper, epigastric and left upper quadrant., no palpable masses, normal bowel sounds heard. 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 Moves all extremities Skin: no rash. LABORATORY DATA: Please see below. IMAGING: PROCEDURE INFORMATION: Exam: CT Abdomen And Pelvis With Contrast Exam date and time: 06/13/2019 10:49 PM Age: 18 years old Clinical indication: Abdominal pain; Localized; Right upper quadrant (ruq); Additional info: Ruq pain TECHNIQUE: Imaging protocol: Computed tomography of the abdomen and pelvis with intravenous contrast. Radiation optimization: All CT scans at this facility use at least one of these dose optimization techniques: automated exposure control; mA and/or kV adjustment per patient size (includes targeted exams where dose is matched to clinical indication); or iterative reconstruction. Contrast material: ISO; Contrast volume: 100 ml; Contrast route: AC; COMPARISON: Abdomen, limited US 06/13/2019 9:03 PM FINDINGS: Lungs: No suspicious mass or airspace process in the visualized lung bases. Liver: Liver appears normal with no focal abnormality. Gallbladder and bile ducts: Gallbladder is contracted and not well evaluated. Pancreas: Pancreas appears normal. No focal mass or peripancreatic inflammation. Spleen: Spleen appears homogeneous without focal mass. Adrenals: Adrenal glands are normal in appearance. Kidneys and ureters: Kidneys appear normal, with no stone, solid mass or hydronephrosis. Stomach and bowel: No evidence of small bowel obstruction. No evidence of acute diverticulitis. Appendix: Normal caliber appendix is identified, with no adjacent inflammation. Intraperitoneal space: No pneumoperitoneum. Vasculature: No aortic aneurysm. Main portal and splenic veins enhance normally. Lymph nodes: No enlarged lymph nodes. Bladder: Urinary bladder appears normal. Reproductive: Involuting 2 cm left ovarian cyst is seen anteriorly. Moderate volume of transudate-density pelvic free fluid is present Bones/joints: Bony structures show no acute fracture or destructive process. Soft tissues: Unremarkable. IMPRESSION: 1. Contracted gallbladder without evidence of duct stone or dilatation. Patient had an ultrasound earlier today which demonstrated a contracted gallbladder but no apparent stone. No explanation for acute right upper quadrant pain 2. Involuting 2 cm right ovarian cyst with moderate low-density pelvic free fluid Electronically signed by: Triston Scott On 06/13/2019 23:19:44 PM PROGNOSIS: Favorable ACTIVITY: [As tolerated]. DIET: Soft mechanical DISCHARGE PLAN: Home DISPOSITION: 01 Home, Self-Care. DISCHARGE INSTRUCTIONS: repeat CMP in 2 days ITEMS TO FOLLOWUP ON ON OUTPATIENT: Follow-up with GI on the next week DISCHARGE CONDITION: Stable TIME SPENT ON DISCHARGE: Greater than 20 minutes. Vital Signs/I&Os Vital Signs Date Time Temp Pulse Resp B/P (MAP) Pulse Ox O2 Delivery O2 Flow Rate FiO2 06/20/19 16:00 98.6 91 16 141/88 (105) 99 Room Air I&O- Last 24 Hours up to 6 AM 06/20/19 06:00 Intake Total 1600 ml Output Total 875 ml Balance 725 ml Laboratory Data Labs 24H Laboratory Tests 2 06/20/19 06:54: Lymphocytes # (Auto) , Nucleated Red Blood Cells % (auto) 0.0, Neutrophils 28, Lymphocytes (Manual) 62H, Monocytes (Manual) 3, Atypical Lymphocytes 7H, Red Blood Cell Morphology NORMAL, Platelet Estimate NORMAL, Anion Gap 2L, Calcium Level 8.1L, Total Bilirubin 2.9H, Direct Bilirubin 2.6H, Aspartate Amino Transf (AST/SGOT) 282H, Alanine Aminotransferase (ALT/SGPT) 361H, Alkaline Phosphatase 571H, Total Protein 5.9L, Albumin 2.1L, Albumin/Globulin Ratio 0.55L CBC/BMP Laboratory Tests 06/20/19 06:54 Microbiology Microbiology 06/14/19 Blood Culture - Final, Complete NO GROWTH AFTER 5 DAYS 06/13/19 Urine Culture - Final, Complete Discharge Medications Scheduled Polyethylene Glycol 3350 (Polyethylene Glycol 3350) 17 Gm Powd.pack, 1 PKT PO DAILY Scheduled PRN Ibuprofen (Advil) 100 Mg Tablet, 1 TAB PO BID PRN for FEVER Ondansetron HCl (Zofran) 4 Mg Tablet, 1 TAB PO Q6-8HP PRN for nausea/vomiting Allergies Coded Allergies: No Known Allergies (Unverified , 06/13/19) ALBERT CAIN DO Jun 20, 2019 19:34
[2019-06-21 00:06] LABS: ANTI-MITOCHONDRIAL ANTIBODY <20.0 Units (0.0-20.0); ANTI-SMOOTH MUSCLE ANTIBODY 22 Units (0-19); ANTINUCLEAR ANTIBODIES DIRECT Negative (Negative)
[2019-06-22 08:06] LABS: CMV QUANT DNA PCR (PLASMA) Negative (Negative); EBV PCR QUAL WHOLE BLD Positive (Negative); EBV VIRAL CAPSID AG IgM >160.0 U/mL (0.0-35.9); HEPATITIS A IgG TOTAL Positive (Negative); HEPATITIS E IgM ANTIBODY Negative (Negative); HSV IgM TYPES 1&2 1.46 Ratio (0.00-0.90); Lyme Disease IgG Ab 18 kDa Ban Absent (.); Lyme Disease IgG Ab 23 kDa Ban Absent (.); Lyme Disease IgG Ab 28 kDa Ban Absent (.); Lyme Disease IgG Ab 30 kDa Ban Absent (.); Lyme Disease IgG Ab 39 kDa Ban Absent (.); Lyme Disease IgG Ab 41 kDa Ban Absent (.); Lyme Disease IgG Ab 45 kDa Ban Absent (.); Lyme Disease IgG Ab 58 kDa Ban Absent (.); Lyme Disease IgG Ab 66 kDa Ban Absent (.); Lyme Disease IgG Ab 93 kDa Ban Absent (.); Lyme Disease IgG West Blot Int Negative (.); Lyme Disease IgG/IgM Antibodie <0.91 ISR (0.00-0.90); Lyme Disease IgM Ab 23 kDa Ban Present (.); Lyme Disease IgM Ab 39 kDa Ban Absent (.); Lyme Disease IgM Ab 41 kDa Ban Absent (.); Lyme Disease IgM Ab Quantitati 1.74 index (0.00-0.79); Lyme Disease IgM West Blot Int Negative (.); PARVOVIRUS B19 QUANT PCR Negative copies/mL (Negative)
== END 2019-06-20 16:20 | disposition home or self-care (01) | DRG 866 ==
LOC: M ED 18:19 → M ED INP 06-14 01:21 → ENRESERV 06-14 03:27 → M MS5PR 06-14 04:20 → M PED 06-16 18:47
PROVIDERS: ADMIT Internal Medicine; ATTEND Internal Medicine Nephrology
PROC: 0DB78ZX Excision of Stomach, Pylorus, Via Natural or Artificial Opening Endoscopic, Diagnostic (ICD-10-PCS; principal; 2019-06-17 12:38)
DX: B27.90 Infectious mononucleosis, unspecified without complication (principal); D61.818 Other pancytopenia; K82.0 Obstruction of gallbladder; D72.825 Bandemia; Z79.3 Long term (current) use of hormonal contraceptives; R74.0 Nonspecific elevation of levels of transaminase and lactic acid dehydrogenase [LDH]; E80.6 Other disorders of bilirubin metabolism; R59.1 Generalized enlarged lymph nodes; E87.6 Hypokalemia; R94.5 Abnormal results of liver function studies; R50.9 Fever, unspecified; D72.819 Decreased white blood cell count, unspecified

== ENCOUNTER → 2019-06-13 | Outpatient (CLI) | payer OTHER ==
--- NOTE | 2019-06-13 14:54 | REP ---
Supine abdomen two views for abdominal pain: There are no comparisons. The bowel gas pattern is normal. There is a 8 mm density in the right upper quadrant, nonspecific, renal calculus versus gallbladder calculus versus bowel lumen artifact. Body jewelry is incidentally identified. There is a calcification inferiorly in the pelvis, likely a phlebolith. The skeletal structures and soft tissues are otherwise unremarkable. Impression: Normal bowel gas pattern. Calcifications as described. Electronically Signed by Mook Dow MD 06/13/2019 02:45 P
[2019-06-13 17:23] LABS: HEMATOCRIT 38.1 % (36.0-47.0); HEMOGLOBIN 12.3 g/dl (12.0-15.5); MEAN CORPUSCULAR HEMOGLOBIN 27.9 pg (27.0-33.0); MEAN CORPUSCULAR HGB CONC 32.3 g/dl (32.0-36.5); MEAN CORPUSCULAR VOLUME 86.4 fl (80.0-96.0); PLATELET COUNT, AUTOMATED 122 10^3/uL (150-450); RED BLOOD COUNT 4.41 10^6/uL (4.00-5.40); WHITE BLOOD COUNT 4.3 10^3/uL (4.0-10.0)
[2019-06-13 17:26] LABS: ALBUMIN 3.6 GM/DL (3.2-5.2); ALT/SGPT 502 U/L (12-78); AMYLASE 38 U/L (25-115); BILIRUBIN,TOTAL 2.2 MG/DL (0.2-1.0); BLOOD UREA NITROGEN 6 MG/DL (7-18); CALCIUM LEVEL 8.6 MG/DL (8.5-10.1); CARBON DIOXIDE LEVEL 27 MEQ/L (21-32); CHLORIDE LEVEL 102 MEQ/L (98-107); CREATININE FOR GFR 0.84 MG/DL (0.55-1.30); GLUCOSE, FASTING 90 MG/DL (70-100); HCG, SERUM QUANTITATIVE < 1.0 MIU/ML; LIPASE 82 U/L (73-393); SODIUM LEVEL 135 MEQ/L (136-145); THYROID STIMULATING HORMONE 0.874 uIU/ML (0.463-3.98); TOTAL PROTEIN 6.9 GM/DL (6.4-8.2)
[2019-06-13 19:24] LABS: ATYPICAL LYMPH 33 % (0-5); EOSINOPHILS 1 % (0-3); LYMPHOCYTES 21 % (16-44); NEUTROPHILS 35 % (28-66)
[2019-06-13 19:26] LABS: PLATELET ESTIMATE NORMAL (NORMAL)
== END ==
LOC: M WUC 13:53
PROVIDERS: ATTEND Physician Assistant
DX: R10.84 Generalized abdominal pain (principal)

== ENCOUNTER → 2019-06-13 | Outpatient (REF) | payer OTHER | LOC: M LAB REF 17:53 | PROVIDERS: ATTEND Physician Assistant | DX: R10.84 Generalized abdominal pain (principal) ==

== ENCOUNTER → 2019-06-24 | Outpatient (CLI) | payer OTHER ==
[~2019-06-24] MED LIST changes: +ADVI100T PO; +PEG1POW PO; +QC A650T3 PO; +ZOFR4TAB16 PO
[2019-06-24 11:38] LABS: ALBUMIN 2.6 GM/DL (3.2-5.2); ALT/SGPT 166 U/L (12-78); BILIRUBIN,TOTAL 1.2 MG/DL (0.2-1.0); BLOOD UREA NITROGEN 5 MG/DL (7-18); CALCIUM LEVEL 8.2 MG/DL (8.5-10.1); CARBON DIOXIDE LEVEL 30 MEQ/L (21-32); CHLORIDE LEVEL 104 MEQ/L (98-107); CREATININE FOR GFR 0.64 MG/DL (0.55-1.30); GLUCOSE, FASTING 86 MG/DL (70-100); POTASSIUM SERUM 3.8 MEQ/L (3.5-5.1); SODIUM LEVEL 140 MEQ/L (136-145); TOTAL PROTEIN 6.8 GM/DL (6.4-8.2)
== END ==
LOC: M LAB 10:36
PROVIDERS: ATTEND Internal Medicine Gastroenterology
DX: R79.9 Abnormal finding of blood chemistry, unspecified (principal)

== ENCOUNTER → 2020-04-27 | Outpatient (CLI) | payer OTHER | LOC: M LABSMTC 11:17 | PROVIDERS: ATTEND Family Medicine | DX: Z20.828 Contact with and (suspected) exposure to other viral communicable diseases (principal) ==

== ENCOUNTER → 2020-05-31 | Outpatient (REF) | payer OTHER, MEDICAID ==
[2020-05-31 15:43] LABS: HEMATOCRIT 34.9 % (36.0-47.0); HEMOGLOBIN 11.2 g/dl (12.0-15.5); MEAN CORPUSCULAR HEMOGLOBIN 28.6 pg (27.0-33.0); MEAN CORPUSCULAR HGB CONC 32.1 g/dl (32.0-36.5); MEAN CORPUSCULAR VOLUME 89.3 fl (80.0-96.0); PLATELET COUNT, AUTOMATED 238 10^3/uL (150-450); RED BLOOD COUNT 3.91 10^6/uL (4.00-5.40); WHITE BLOOD COUNT 7.4 10^3/uL (4.0-10.0)
[2020-05-31 17:08] LABS: HEPATITIS C VIRUS ABY INDEX 0.1 INDEX (<0.8); HIV 1&2 SCREEN CENTAUR NEGATIVE (NEGATIVE)
[2020-05-31 21:17] LABS: CHLAMYDIA DNA AMPLIFICATION POSITIVE (NEGATIVE); GC DNA AMPLIFICATION NEGATIVE (NEGATIVE)
== END ==
LOC: M PLALAB 14:16
PROVIDERS: ATTEND Advanced Practice Midwife
DX: Z34.02 Encounter for supervision of normal first pregnancy, second trimester (principal); Z3A.18 18 weeks gestation of pregnancy

== ENCOUNTER → 2020-06-06 | Outpatient (CLI) | payer OTHER ==
--- NOTE | 2020-06-07 06:39 | REP ---
INDICATION: ANATOMY COMPARISON: None. TECHNIQUE: Transabdominal obstetrical ultrasound with color Doppler evaluation. FINDINGS: Examination demonstrates a single live intrauterine in breech presentation. motion is identified by technologist. Placenta is noted posterior and grade 1 without evidence for placenta previa or abruption. Amniotic fluid volume is normal. Cervix measures 3.4 cm in length and appears closed.. Gestational age by LMP 19 weeks 4 days with CASEY 10/27/2020. Gestational age by current measurements 19 weeks 6 days with CASEY 10/25/2020. FHR equals 143 beats per minute. BPD: 4.5 cm 19 weeks 3 days HC: 16.7 cm 19 weeks 3 days AC: 14.6 cm 19 weeks 6 days FL: 3.2 cm 19 weeks 6 days HL: 3.1 cm 20 weeks 3 days HC/AC: 1.14 Estimated weight 315 grams (60thpercentile). Anatomical assessment demonstrates normal structures including cranium, choroid plexus, cavum, cerebellum/posterior fossa, facial features, lungs, four-chamber heart/ventricular outflow tracts, diaphragm, stomach, cord insertion/three-vessel cord, kidneys/bladder, spine, and extremities. IMPRESSION: Single live intrauterine in breech presentation demonstrating appropriate interval growth. Anatomical assessment is complete and normal. <Electronically signed by Juancho Stephens > 06/07/20 [id number]
== END ==
LOC: M WHC 14:04
PROVIDERS: ATTEND Advanced Practice Midwife
DX: O32.1XX0 Maternal care for breech presentation, not applicable or unspecified (principal); Z36.89 Encounter for other specified antenatal screening; Z3A.19 19 weeks gestation of pregnancy

== ENCOUNTER → 2020-06-28 | Outpatient (REF) | payer OTHER, MEDICAID ==
[2020-06-28 20:04] LABS: CHLAMYDIA DNA AMPLIFICATION NEGATIVE (NEGATIVE); GC DNA AMPLIFICATION NEGATIVE (NEGATIVE)
== END ==
LOC: M SFHCWAGY 16:39
PROVIDERS: ATTEND Advanced Practice Midwife
DX: Z34.02 Encounter for supervision of normal first pregnancy, second trimester (principal)

== ENCOUNTER → 2020-08-05 | Outpatient (REF) | payer OTHER, MEDICAID ==
[~2020-08-05] MED LIST changes: -PEG1POW PO; +POLY17PO18 PO
[2020-08-05 15:15] LABS: HEMATOCRIT 32.9 % (36.0-47.0); HEMOGLOBIN 10.2 g/dl (12.0-15.5); MEAN CORPUSCULAR HEMOGLOBIN 26.7 pg (27.0-33.0); MEAN CORPUSCULAR VOLUME 86.1 fl (80.0-96.0); PLATELET COUNT, AUTOMATED 231 10^3/uL (150-450); RED BLOOD COUNT 3.82 10^6/uL (4.00-5.40); WHITE BLOOD COUNT 9.4 10^3/uL (4.0-10.0)
== END ==
LOC: M PLALAB 12:41
PROVIDERS: ATTEND Advanced Practice Midwife
DX: Z34.02 Encounter for supervision of normal first pregnancy, second trimester (principal)

== ENCOUNTER → 2020-10-02 | Outpatient (REF) | payer OTHER, MEDICAID | LOC: M SFHCWAGY 12:50 | PROVIDERS: ATTEND Advanced Practice Midwife | DX: O99.013 Anemia complicating pregnancy, third trimester (principal); Z3A.00 Weeks of gestation of pregnancy not specified ==

== ENCOUNTER 2020-10-21 11:47 | Inpatient (IN) | payer OTHER ==
[~2020-10-21] VITALS: Ht 172.7 cm; Wt 99.2 kg
[2020-10-21] VITALS (28 sets, daily range): BP systolic 117–164; BP diastolic 68–99
[2020-10-21] MEDS ORDERED: LACTATED RINGER'S 1000 ML IV STA (11:58)
[2020-10-21] MEDS ORDERED: PENICILLIN G POTASSIUM IV 5 MU in D5W MINI-BAG PLUS 100 ML IV STA ×2 (11:58→17:54)
[2020-10-21] MEDS ORDERED: METHYLERGONOVINE MALEATE 0.2 MG/ML VIAL (J2210) IM PRN (12:00)
[2020-10-21] MEDS ORDERED: OXYTOCIN DRIP 30 UNITS in IV 1 EA IV PRN (12:00)
[2020-10-21] MEDS ORDERED: LIDOCAINE 1% MDV 20ML VIAL INFIL PRN (12:00)
[2020-10-21] MEDS ORDERED: CARBOPROST TROMETHAMINE 250 MCG/ML AMP IM PRN (12:00)
[2020-10-21] MEDS ORDERED: TRANEXAMIC ACID INJection 1,000 MG in NS 100 ML IV PRN (12:00)
--- NOTE | 2020-10-21 12:17 | HPEPDOC ---
Obstetrical History & Physical General Date of Admission October 21, 2020 at 11:47 Primary Care Physician: CAN ALEXANDER CNM History of Present Illness Tamie is a 20-year-old female who is a at 39.1 weeks gestation with an CASEY of 10/27/20 based off of her LMP. She initiated car ein her first trimester of in [place] and transferred care to [facility] at 18 weeks gestation. Her has been complicated by anemia, which she has been taking iron for. She presents for an elective IOL. She reports active movement. She denies contractions, leaking of fluid or vaginal bleeding. Chief Complaint: Induction of labor Information Provided By: Patient Age: 20 : 1 Term: 0 Pre-term: 0 Abortions: 0 Livin Care Care: Good Care Dating Final EDC: Oct 27, 2020 Final EDC by: LMP EGA at Admission: 39.1 Antepartum Course Diagnos(e)s pitting edema bilateral feet and ankles. 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 Past Medical History Medical History non-contributory Surgical History: Denies/None Family History Significant Family History: Cancer (father prostate cancer; mother breast cancer) Social History Marital Status: Single Family situation: Spouse/partner home Psychosocial History: No pertinent psych hx * Smoker: non-smoker Alcohol: Denies Drugs: denies Abuse Violence Screening Have you been hit/kicked/slapp: No Have you been sexually assault: No Allergies Coded Allergies: No Known Allergies (Unverified , 06/13/19) Medications Scheduled No.137/Iron/Folic Acd ( Vitamin Tablet) 1 Each Tablet, 1 TAB PO DAILY Physical Examination Physical Examination GENERAL: Alert and oriented times three. BREAST: . ABDOMEN: Gravid and non-tender to touch. FETUS: Is vertex (VTX) by sterile vaginal examination (SVE), fetus is vertex (V TX) by Ben.EFW 3700 grams. LUNGS: Clear to auscultation (CTA). EXTREMITIES: 1 to 2+ pitting edema feet and ankles. No clonus. Deep tendon reflexes (DTRs) + 1. Vital Signs/I&O Vital Signs Label Value Date Time Patient Temperature 98.2 degrees F 10/21/20 1212 Temperature Source Temporal 10/21/20 1212 Pulse 103 10/21/20 1212 Respiratory Rate 18 bpm 10/21/20 1212 Blood Pressure Assessment 139/91 (107) 10/21/20 1212 Source Automatic Cuff (NIBP) Laboratory Data 24H LABS Laboratory Tests 2 10/21/20 12:02: Serology Scanned Report Hepatitis B Testing CBC/BMP Item Value Date Time White Blood Count 11.2 10^3/uL H 10/21/20 1236 Red Blood Count 3.93 10^6/uL L 10/21/20 1236 Hemoglobin 10.1 g/dl L 10/21/20 1236 Hematocrit 31.4 % L 10/21/20 1236 Mean Corpuscular Volume 79.9 fl L 10/21/20 1236 Mean Corpuscular Hemoglobin 25.7 pg L 10/21/20 1236 Red Cell Distribution Width 14.6 % H 10/21/20 1236 Mean Corpuscular Hemoglobin Concent 32.2 g/dl 10/21/20 1236 Platelet Count 263 10^3/uL 10/21/20 1236 Urine Culture: No Growth Pertinent Laboratoy Data Blood Type: O+ RBC Antibody Screen: Negative HIV: Negative Hepatitis B: Negative Hepatitis C: Negative Rapid Plasma Reagin: Nonreactive Rubella: Immune Chlamydia/Gonorrhea: Negative Group B Streptococcus: Positive Glucose Tolerance Test: 100 Diag/Inter Therapy repeat Chlamydia negative Vaginal Examination Dilation: 3 cm Effacement: 60% Station: -2 Cervical Consistency: Soft Cervical Position: Middle Presentation: Cephalic presentation Position: Vertex (occiput) Assessment Heart Rate (FHR): 140 Variability: Moderate Accelerations: Positive Decelerations: None Tocometer Contractions: Yes Frequency: irregular Multi-drug resistant Organism: No history of MDRO Assessment/Plan Assessment IUP at 39.1 weeks gestation elective IOL Category I FHR tracing GBS positive Plan Admit to L&D. OOB ad johana. Diet: regular. Group B Streptococcus (GBS) positive. Start antibiotics per order. Labs and intravenous (IV) per unit protocol. Counseled on Cytotec, kamara bulb, and IV Pitocin for induction of labor (IOL). Anesthesia consult per patient's request. Lactated Ringers (LR): Bolus 800 mL, then at 125 mL/hr. Anticipate cervical ripening. C-S as appropriate. CAN ALEXANDER CNM October 21, 2020 12:17
[2020-10-21] MEDS ORDERED: PRENTAB9 PO (12:58)
[2020-10-21 12:59] LABS: HEMATOCRIT 31.4 % (36.0-47.0); HEMOGLOBIN 10.1 g/dl (12.0-15.5); MEAN CORPUSCULAR HEMOGLOBIN 25.7 pg (27.0-33.0); MEAN CORPUSCULAR HGB CONC 32.2 g/dl (32.0-36.5); MEAN CORPUSCULAR VOLUME 79.9 fl (80.0-96.0); PLATELET COUNT, AUTOMATED 263 10^3/uL (150-450); RED BLOOD COUNT 3.93 10^6/uL (4.00-5.40); WHITE BLOOD COUNT 11.2 10^3/uL (4.0-10.0)
[2020-10-21] MEDS ORDERED: miSOPROStol 50MCG 1/2 TABLET PO SCH (13:00)
[2020-10-21 13:30] LABS: CREATININE,RANDOM URINE 85.8 MG/DL; TOTAL PROTEIN,RANDOM URINE 55.2 MG/DL (0.0-12.0)
[2020-10-21 14:15] LABS: ALT/SGPT 15 U/L (12-78); BILIRUBIN,TOTAL 0.4 MG/DL (0.2-1.0); CREATININE FOR GFR 0.56 MG/DL (0.55-1.30); GLOMERULAR FILTRATION RATE > 60.0 (>60); LDH LACTATE DEHYDROGENASE 393 U/L (84-246); URIC ACID 3.6 MG/DL (2.6-6.0)
[2020-10-21] MEDS ORDERED: PENICILLIN G POTASSIUM IV 2.5 MU in IV 1 EA IV SCH (16:00)
[2020-10-21] MEDS ORDERED: OXYTOCIN DRIP 30 UNITS in IV 1 EA IV SCH (18:00)
[2020-10-21] MEDS: LR 1,000 ML IV SCH (18:26)
--- NOTE | 2020-10-21 18:26 | IPNPDOC ---
Obstetrical Progress Note Date of Service October 21, 2020 Subjective Patient reports she is feeling her contractions. Objective Vital Signs Date Time Temp Pulse Resp B/P (MAP) Pulse Ox O2 Delivery O2 Flow Rate FiO2 10/21/20 16:44 69 18 131/79 (96) 10/21/20 15:28 99.0 Assessment Heart Rate (FHR): 130 Variability: Moderate Accelerations: Positive Decelerations: None Heart Rate Tracing: Category I Tocometer Contractions: Yes Frequency: regular Sterile Vaginal Examination Dilation: 3 cm (3-4 cm) Effacement (%): other (75%) Station: -1 Cervical Consistency: Soft Cervical Position: Anterior Postion/Presentation: Cephalic presentation Assessment and Plan Age: 20 : 1 Term: 0 Pre-term: 0 Abortions: 0 Livin EGA at Admission: 39.1 Status: Reassuring Group B Streptococcus: Positive Anticipate: Vaginal Delivery Additional Comments Reviewed diagnosis of preeclampsia with patient and family. IV Pitocin to be started per order after discussing options. CAN ALEXANDER CNM October 21, 2020 18:26
[2020-10-21] MEDS ORDERED: FENTANYL 2MCG/ML ROPIVACAINE 0.2% IN 0.9% NACL 100ML IVBAG As Ordered ONE (20:59)
[2020-10-21] MEDS ORDERED: ACETAMINOPHEN 500 MG TAB PO PRN (21:00)
[2020-10-21] MEDS: PENICILLIN G POTASSIUM IV 2.5 MU in IV 1 EA IV SCH (22:25)
[2020-10-21] MEDS ORDERED: ONDANSETRON 4MG/2ML VIAL IV PRN (22:40)
[2020-10-21] MEDS ORDERED: ePHEDrine SULFATE 25 MG/5 ML(5MG/ML) SYRINGE IV PRN (22:40)
[2020-10-21] MEDS ORDERED: NALOXONE INJ 0.4MG/1ML VIAL (J2310 PER 1MG) IV PRN (22:40)
[2020-10-21] MEDS ORDERED: EPIDURAL/PCA KEYS XX PRN (22:40)
[2020-10-21] MEDS ORDERED: REFRIGERATOR IV KEYS XX PRN (22:40)
[2020-10-21] MEDS ORDERED: diphenhydrAMINE 50MG/ML VIAL (J1200) IV PRN (22:40)
[2020-10-21] MEDS ORDERED: EPIDURAL COMMENT XX SCH (22:40)
[2020-10-21] MEDS ORDERED: FENTANYL/ROPIVACAINE/NACL BAG 100 ML EPIDURAL SCH (22:40)
[2020-10-21] MEDS ORDERED: LACTATED RINGER'S 1000 ML IV PRN (22:40)
--- NOTE | 2020-10-21 22:40 | IPNPDOC ---
Obstetrical Progress Note Date of Service October 21, 2020 Subjective Patient is getting more comfortable with her epidural. Objective Vital Signs Date Time Temp Pulse Resp B/P (MAP) Pulse Ox O2 Delivery O2 Flow Rate FiO2 10/21/20 20:09 73 150/95 (113) 10/21/20 20:08 18 10/21/20 18:26 99.0 Assessment Heart Rate (FHR): 130 Variability: Moderate Accelerations: Positive Decelerations: None Heart Rate Tracing: Category I Tocometer Contractions: Yes Frequency: regular Sterile Vaginal Examination Dilation: 4 cm Effacement (%): 90% Station: -1 Cervical Consistency: Soft Cervical Position: Anterior Postion/Presentation: Cephalic presentation Assessment and Plan EGA at Admission: 39.1 Status: Reassuring Group B Streptococcus: Positive Anticipate: Vaginal Delivery Additional Comments IV Pitocin at 6 mu/min. Patient treated with Tylenol prior to epidural. Given epidural button to use if needed. Continue to monitor cervical changes and blood pressures. CAN ALEXANDER CNM October 21, 2020 22:40
[2020-10-22] VITALS (25 sets, daily range): BP systolic 121–160; BP diastolic 64–94
[2020-10-22] MEDS: PENICILLIN G POTASSIUM IV 2.5 MU in IV 1 EA IV SCH (02:22)
[2020-10-22] MEDS: LR 1,000 ML IV SCH (02:23)
[2020-10-22] MEDS ORDERED: TRANEXAMIC ACID 100 MG/ML 10ML VIAL As Ordered ONE (03:40)
[2020-10-22] MEDS ORDERED: LOPERAMIDE 2 MG CAPLET PO ONE (03:55)
[2020-10-22] MEDS ORDERED: LOPERAMIDE 2 MG CAPLET PO PRN ×2 (03:55→06:05)
[2020-10-22] MEDS ORDERED: OXYTOCIN DRIP 30 UNITS in IV 1 EA IV SCH (04:15)
[2020-10-22 04:34] LABS: HEMATOCRIT 29.3 % (36.0-47.0); HEMOGLOBIN 9.2 g/dl (12.0-15.5); MEAN CORPUSCULAR HEMOGLOBIN 25.4 pg (27.0-33.0); MEAN CORPUSCULAR HGB CONC 31.4 g/dl (32.0-36.5); MEAN CORPUSCULAR VOLUME 80.9 fl (80.0-96.0); PLATELET COUNT, AUTOMATED 268 10^3/uL (150-450); RED BLOOD COUNT 3.62 10^6/uL (4.00-5.40); WHITE BLOOD COUNT 14.5 10^3/uL (4.0-10.0)
--- NOTE | 2020-10-22 04:41 | DNPDOC ---
[facility] Delivery Note Delivery Note DATE OF DELIVERY: 10/22/20 at 0333 PREDELIVERY DIAGNOSIS: 39-1/7 weeks' gestation and induction of labor. POST DELIVERY DIAGNOSIS: Delivered. PROCEDURE: Spontaneous vaginal delivery. [place] NURSE: Can Lewis CNM, SAMY ANESTHESIA: epidural. ESTIMATED BLOOD LOSS: 1100 mL. FINDINGS: 9 pounds; 4080 grams; male , Score 8/9, preeclampsia diagnosed with admission and hemorrhage, marginal cord insertion. DELIVERY SUMMARY: Tamie is a 20-year-old female who is now a who presented for an elective induction of labor and found to have preeclampsia with admission. She was given Cytotec and IV Pitocin for induction. The patient requested an epidural for pain management. She spontaneously ruptured clear fluid at 0210 and progressed to fully dilated at 0248. The patient pushed to a living male in the SVETA position with restitution to LOT. The anterior shoulder delivered with ease and the corpus immediately followed. The baby was placed neos-co-cumm active and crying. The placenta delivered spontaneously and intact at 0338. Uterine hemostasis was achieved after IV Pitocin, IV TXA, Cytotec 800 mcg and Hemabate. Multiple clots evacuated from uterus during this time. The perineum, cervix, and vagina was inspected and found to have a second degree perineal laceration that was repaired with a 3.[address]-1. Stat CBC ordered with Type and Cross match for 2 units of PRBC. Will repeat CBC at 0900. Patient's VS remain stable. Patient verbally consents to a blood transfusion. All counts of instruments and sponges are correct. Both mom and baby are in stable condition. They plan on naming him Srinivasan. CAN LEWIS CNM Oct 22, 2020 04:41
[2020-10-22 04:59] LABS: ALT/SGPT 9 U/L (12-78); BILIRUBIN,TOTAL 0.3 MG/DL (0.2-1.0); CREATININE FOR GFR 0.65 MG/DL (0.55-1.30); GLOMERULAR FILTRATION RATE > 60.0 (>60); LDH LACTATE DEHYDROGENASE 154 U/L (84-246); URIC ACID 3.5 MG/DL (2.6-6.0)
[2020-10-22] MEDS ORDERED: METHYLERGONOVINE MALEATE 0.2 MG TAB PO PRN (05:05)
[2020-10-22] MEDS ORDERED: DIBUCAINE 1% OINTMENT 30GM TOP PRN (05:05)
[2020-10-22] MEDS ORDERED: RHOGAM 300 MCG (1500 IU) INJ (J2790) IM SCH (05:05)
[2020-10-22] MEDS ORDERED: ACETAMINOPHEN TAB 650MG DOSE (2X325MG) PO PRN (05:05)
[2020-10-22] MEDS ORDERED: IBUPROFEN 600MG TAB PO PRN (05:05)
[2020-10-22] MEDS ORDERED: DOCUSATE SODIUM 100MG CAPSULE PO PRN (05:05)
[2020-10-22] MEDS ORDERED: MEASLES,MUMPS,RUBELLA VACCINE INJ (MMR-II) (90707) SC SCH (05:05)
[2020-10-22] MEDS ORDERED: ANUSOL HC CREAM 30GM TOP PRN (05:05)
[2020-10-22] MEDS: IBUPROFEN 800 MG TAB PO PRN ×2 (06:21→13:17)
[2020-10-22] MEDS: PRENATAL VITAMINS CHEWABLE TABLET PO SCH (08:51)
[2020-10-22 09:40] LABS: HEMATOCRIT 22.9 % (36.0-47.0); MEAN CORPUSCULAR HEMOGLOBIN 26.4 pg (27.0-33.0); MEAN CORPUSCULAR HGB CONC 32.8 g/dl (32.0-36.5); MEAN CORPUSCULAR VOLUME 80.6 fl (80.0-96.0); PLATELET COUNT, AUTOMATED 232 10^3/uL (150-450); RED BLOOD COUNT 2.84 10^6/uL (4.00-5.40); WHITE BLOOD COUNT 16.7 10^3/uL (4.0-10.0)
[2020-10-22 09:41] LABS: HEMOGLOBIN 7.5 g/dl (12.0-15.5)
[2020-10-22] MEDS: ACETAMINOPHEN 500 MG TAB PO PRN (19:14)
[2020-10-23 02:00] VITALS: BP 122/72
[2020-10-23 06:00] VITALS: BP 128/65
[2020-10-23] MEDS: PRENATAL VITAMINS CHEWABLE TABLET PO SCH (07:34)
[2020-10-23] MEDS: ACETAMINOPHEN 500 MG TAB PO PRN (07:36)
[2020-10-23 14:00] VITALS: BP 137/80
[2020-10-23] MEDS: IBUPROFEN 800 MG TAB PO PRN (14:11)
[2020-10-23 17:56] VITALS: BP 132/84
[2020-10-23 23:00] VITALS: BP 131/74
[2020-10-24] VITALS (11 sets, daily range): BP systolic 130–143; BP diastolic 78–95
[2020-10-24] MEDS: ACETAMINOPHEN 500 MG TAB PO PRN (00:53)
[2020-10-24 01:38] LABS: MEAN CORPUSCULAR HEMOGLOBIN 25.8 pg (27.0-33.0); MEAN CORPUSCULAR HGB CONC 31.4 g/dl (32.0-36.5); MEAN CORPUSCULAR VOLUME 82.3 fl (80.0-96.0); PLATELET COUNT, AUTOMATED 235 10^3/uL (150-450); RED BLOOD COUNT 2.48 10^6/uL (4.00-5.40); WHITE BLOOD COUNT 12.5 10^3/uL (4.0-10.0)
[2020-10-24 01:43] LABS: HEMATOCRIT 20.4 % (36.0-47.0)
[2020-10-24 01:46] LABS: HEMOGLOBIN 6.4 g/dl (12.0-15.5)
[2020-10-24] MEDS ORDERED: ACETAMINOPHEN 500 MG TAB PO ONE (02:10)
[2020-10-24] MEDS ORDERED: diphenhydrAMINE 50MG CAP PO ONE (02:10)
[2020-10-24] MEDS: PRENATAL VITAMINS CHEWABLE TABLET PO SCH (08:52)
[2020-10-24] MEDS: IBUPROFEN 800 MG TAB PO PRN (08:53)
[2020-10-24 12:44] LABS: HEMATOCRIT 28.3 % (36.0-47.0); MEAN CORPUSCULAR HEMOGLOBIN 26.8 pg (27.0-33.0); MEAN CORPUSCULAR HGB CONC 32.2 g/dl (32.0-36.5); MEAN CORPUSCULAR VOLUME 83.2 fl (80.0-96.0); PLATELET COUNT, AUTOMATED 270 10^3/uL (150-450); WHITE BLOOD COUNT 13.3 10^3/uL (4.0-10.0)
[2020-10-24 12:45] LABS: HEMOGLOBIN 9.1 g/dl (12.0-15.5)
[2020-10-24] MEDS ORDERED: DOK1CAP7 PO (14:18)
[2020-10-24] MEDS ORDERED: FERR325T3 PO (14:18)
[2020-10-24] MEDS ORDERED: IBUP80TA PO (14:18)
== END 2020-10-24 15:15 | disposition home or self-care (01) | DRG 807 ==
LOC: M LDI 11:47 → M OBS 10-22 06:48
PROVIDERS: ADMIT Advanced Practice Midwife; ATTEND Advanced Practice Midwife
PROC: 3E033VJ Introduction of Other Hormone into Peripheral Vein, Percutaneous Approach (ICD-10-PCS; 2020-10-21)
PROC: 10E0XZZ Delivery of Products of Conception, External Approach (ICD-10-PCS; principal; 2020-10-22)
PROC: 0KQM0ZZ Repair Perineum Muscle, Open Approach (ICD-10-PCS; 2020-10-22)
PROC: 30233N1 Transfusion of Nonautologous Red Blood Cells into Peripheral Vein, Percutaneous Approach (ICD-10-PCS; 2020-10-22)
DX: O14.04 Mild to moderate pre-eclampsia, complicating childbirth (principal); Z37.0 Single live birth; O99.02 Anemia complicating childbirth; Z3A.39 39 weeks gestation of pregnancy; O99.824 Streptococcus B carrier state complicating childbirth; O70.1 Second degree perineal laceration during delivery; O72.0 Third-stage hemorrhage

== ENCOUNTER → 2021-07-09 | Outpatient (CLI) | payer OTHER, MEDICAID ==
[~2021-07-09] MED LIST changes: +DOK1CAP4 PO; +FERR325T3 PO; +IBUP80TA PO; +PRENTAB9 PO
[2021-07-09 13:09] LABS: HEMATOCRIT 28.5 % (36.0-47.0); HEMOGLOBIN 8.1 g/dl (12.0-15.5); MEAN CORPUSCULAR HEMOGLOBIN 20.3 pg (27.0-33.0); MEAN CORPUSCULAR HGB CONC 28.4 g/dl (32.0-36.5); MEAN CORPUSCULAR VOLUME 71.4 fl (80.0-96.0); PLATELET COUNT, AUTOMATED 366 10^3/uL (150-450); RED BLOOD COUNT 3.99 10^6/uL (4.00-5.40); WHITE BLOOD COUNT 4.2 10^3/uL (4.0-10.0)
[2021-07-09 14:00] LABS: FREE T4 1.07 NG/DL (0.76-1.46); THYROID STIMULATING HORMONE 3.02 uIU/ML (0.358-3.740)
== END ==
LOC: M PLALAB 09:36
PROVIDERS: ATTEND Specialist
DX: N92.6 Irregular menstruation, unspecified (principal)

== ENCOUNTER → 2021-07-10 | Outpatient (CLI) | payer OTHER, MEDICAID | LOC: M WHC 11:41 | PROVIDERS: ATTEND Specialist | DX: N92.6 Irregular menstruation, unspecified (principal) ==

== ENCOUNTER → 2021-10-28 | Outpatient (REF) | payer OTHER, MEDICAID ==
[2021-10-28 20:59] LABS: GC DNA AMPLIFICATION NEGATIVE (NEGATIVE)
== END ==
LOC: M LAB REF 19:09
PROVIDERS: ATTEND Physician Assistant
DX: R30.0 Dysuria (principal); Z20.2 Contact with and (suspected) exposure to infections with a predominantly sexual mode of transmission